=== PATIENT | female | born 1945 | race African-American/Black ===

== ENCOUNTER 2016-11-11 10:44 | Day surgery (SDC) | payer OTHER ==
[2016-11-10 14:47] VITALS: BMI 23.6
[2016-11-11] MEDS ORDERED: MIDAZOLAM HCL 2 MG/2 ML SINGLE DOSE VIAL ONE (12:17)
[2016-11-11] MEDS ORDERED: PROPOFOL 20 ML ONE (12:46)
[2016-11-11] MEDS ORDERED: ceFAZolin SODIUM 1 GM VIAL ONE (12:50)
[2016-11-11] MEDS ORDERED: ceFAZolin SODIUM 1 GM VIAL IVPB ONE (12:50)
[2016-11-11] MEDS ORDERED: HEPARIN NA (PORCINE) 5,000 UNITS/ML 1ML VIAL ONE (13:01)
[2016-11-11] MEDS ORDERED: LIDOCAINE HCL 2% (20ML MULTI-DOSE VIAL) NR ONE (13:32)
[2016-11-11] MEDS ORDERED: oxyCODONE HCL 5 MG TABLET PO PRN (13:57)
[2016-11-11] MEDS ORDERED: ONDANSETRON 4 MG/2 ML VIAL IVPUSH PRN (13:57)
--- NOTE | 2016-11-11 14:00 | OP ---
Operative Note - Note: Operative Date: 11/11/16 Pre-Operative Diagnosis: bilateral lower extremity claudication Operation: Aortogram, Left common iliac artery angioplasty with stent placement , right lower extremity angiogram, Right SFA atherectomy with DCB angioplasty Findings: 90% stenosis of left YOLI 95% stenosis of prox right SFA Post-Operative Diagnosis: Same as Pre-op Surgeon: Kenny Vásquez Anesthesia: Fractional Estimated Blood Loss (mls): 50 Operative Report Dictated: Yes
--- NOTE | 2016-11-11 14:01 | HP ---
Admitting History and Physical - Admission Chief Complaint: bilateral lower ext claudication 1 block - Smoking History Smoking history: Former smoker Have you smoked in the past 12 months: Yes Aproximately how many cigarettes per day: 10 - Alcohol/Substance Use Hx Alcohol Use: Yes (OCCASIONAL) Home Medications - Allergies Allergies/Adverse Reactions: Allergies Allergy/AdvReac Type Severity Reaction Status Date / Time No Known Drug Allergies Allergy Verified 11/11/16 11:51 - Home Medications Home Medications: Ambulatory Orders Amlodipine Besylate [Norvasc -] 5 mg PO DAILY 08/02/14 Valsartan 160 mg PO DAILY 08/02/14 Atorvastatin Ca [Lipitor] 20 mg PO HS 09/10/14 Ergocalciferol (Vitamin D2) [Vitamin D2] 2,000 unit PO DAILY 11/10/16 Nicotine Patch [Nicoderm Patch -] 1 patch TD DAILY 11/10/16 Physical Examination Vital Signs: Vital Signs Temperature 98 F 11/11/16 11:45 Pulse Rate 73 11/11/16 11:45 Respiratory Rate 18 11/11/16 11:45 Blood Pressure 157/68 11/11/16 11:45 O2 Sat by Pulse Oximetry (%) 97 11/11/16 11:45 Constitutional: Yes: Well Nourished Eyes: Yes: WNL HENT: Yes: WNL Neck: Yes: WNL Cardiovascular: Yes: WNL Respiratory: Yes: WNL Gastrointestinal: Yes: WNL Extremities: Yes: WNL Edema: No Peripheral Pulses WNL: Yes Assessment/Plan Bilateral lower ext claudication 1. For angiogram today
[2016-11-11] MEDS ORDERED: CLOPIDOGREL BISULFATE 75 MG TABLET (FP) ONE (14:34)
[2016-11-11] MEDS ORDERED: CLOPIDOGREL BISULFATE 75 MG TABLET (FP) PO ONE (15:00)
[2016-11-11 17:42] VITALS: BP 144/66; PULSE 60; TEMP 97.8
--- NOTE | 2016-12-03 14:07 | OP ---
DATE OF OPERATION: 11/11/2016 PREOPERATIVE DIAGNOSIS: Bilateral lower extremity claudication. POSTOPERATIVE DIAGNOSIS: Bilateral lower extremity claudication. PROCEDURE: Aortogram, left common iliac artery angioplasty with stent placement, right lower extremity angiogram, right superficial femoral artery atherectomy with drug-coated balloon angioplasty. FINDINGS: A 90% stenosis of left common iliac artery, 95% stenosis of proximal right superficial femoral artery. SURGEON: Kenny Obrien DO ANESTHESIA: Fractional. BLOOD LOSS: 50 mL. INDICATIONS: The patient is a 71-year-old female who has bilateral lower extremity claudication. 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 It was decided that she would need an angiogram. Patient came into ambulatory surgery. Patient was consented for the procedure, understanding all risks, benefits, and alternatives; was then taken to the operating room. DESCRIPTION OF PROCEDURE: We then prepped and draped the right and left groin in a sterile surgical manner. We then went ahead and injected 10 mL of Xylocaine 0.5% over the left common femoral artery. We used ultrasound, and we were able to visualize the left common femoral artery, and we were then able to take our micropuncture and then punctured the artery. Micropuncture wire was inserted, and a traditional 6-[place] sheath was inserted. We then placed a 0.035 floppy guidewire up into the aorta. We found significant resistance in the left common iliac artery. We then placed an Omni Flush up and shot an aortogram showing that the left common iliac artery was diseased about 90%, and the right common iliac artery was okay, but the proximal right SFA had a 95% stenosis. At this point, we went ahead and used a [employer] Valeo balloon-mounted stent, which was a 9 x 4, and we were able to balloon and stent the left common iliac artery. Once that was performed, we shot a completion angiogram showing that the left common iliac artery was now patent. We then placed an 0.035 floppy guidewire up and over, and Omni Flush catheter followed. We then were able to selectively cannulate through. Using a 0.035 stiff guidewire, we were able to selectively cannulate through the proximal 95% stenosis of the right SFA. We then placed a 6 x 45 Crossover sheath. Patient had already received 5000 units of IV heparin for the left common iliac artery intervention. We went ahead and exchanged our wire for a Viper wire. We then performed orbital atherectomy using a CSI device of the proximal right SFA. We then went ahead and shot a completion angiogram showing that the SFA was now patent, but still had some recoil. We then went ahead and used a 6 x 4 Lutonix balloon and performed angioplasty of the proximal SFA. Completion angiogram showed that the SFA was patent, and there was good brisk flow. At this point, we brought our sheath up and over, and StarClose device was successfully deployed in the left common femoral artery. Pressure was held for 5 minutes. After this there was no bleeding. The area was wet and dried and Dermabond was placed. The patient tolerated the procedure with no complications. Patient was transferred to PACU in stable condition. Patient had palpable pulses in bilateral lower extremities. Estimated blood loss: 50 mL. KENNY OBRIEN DO NP/[id number]
== END 2016-11-11 17:45 | disposition home or self-care (01) ==
LOC: JASU-SURG 10:44
PROVIDERS: ATTEND Surgery Vascular Surgery
PROC: 047K3Z1 Dilation of Right Femoral Artery using Drug-Coated Balloon, Percutaneous Approach (ICD-10-PCS; 2016-11-11)
PROC: 047D3DZ Dilation of Left Common Iliac Artery with Intraluminal Device, Percutaneous Approach (ICD-10-PCS; principal; 2016-11-11 12:30)
DX: I70.213 Atherosclerosis of native arteries of extremities with intermittent claudication, bilateral legs (principal)
CPT/HCPCS: 37221; 37225; C1877; C2623; 76000-TC; 94760; J1644

== ENCOUNTER 2023-07-23 13:55 | Inpatient (IN) | payer OTHER ==
[2023-07-23 15:03] LABS: BASO % 0.1 % (0-2.0); HEMATOCRIT 28.5 % (32.4-45.2); HEMOGLOBIN 9.2 GM/dL (10.7-15.3); LYMPH % 12.6 % (8-40); MCH 29.1 pg (25.7-33.7); MCHC 32.3 g/dl (32.0-36.0); MEAN CELL VOLUME 90.2 fl (80-96); MEAN PLT VOLUME 6.9 fl (7.5-11.1); MONO % 11.7 % (3.8-10.2); NEUT % 75.6 % (42.8-82.8); PLATELET COUNT 373 10^3/uL (134-434); RBC 3.16 M/mm3 (3.60-5.2); RDW 22.7 % (11.6-15.6); WHITE BLOOD COUNT 6.3 K/mm3 (4.0-10.0)
[2023-07-23] MEDS ORDERED: HYDROmorphone HCl 2 MG/ML VIAL ONE (15:04)
[2023-07-23] MEDS: HYDROmorphone HCl 2 MG/ML VIAL IVPUSH STA (15:09)
[2023-07-23 15:11] LABS: INR 1.59 (0.83-1.09); PROTHROMBIN TIME (PATIENT) 18.4 SEC (9.7-13.0)
[2023-07-23 15:14] LABS: ACTIVATED PTT 30.7 SECONDS (25.2-36.5)
[2023-07-23 15:20] LABS: POTASSIUM 4.8 mmol/L (3.5-5.1)
[2023-07-23 15:24] LABS: CALCIUM 8.3 mg/dL (8.5-10.1)
[2023-07-23 15:25] LABS: BLOOD UREA NITROGEN 28.4 mg/dL (7-18)
[2023-07-23 15:27] LABS: CREATININE 0.6 mg/dL (0.55-1.3)
[2023-07-23 15:29] LABS: BILIRUBIN,TOTAL 0.4 mg/dL (0.2-1)
[2023-07-23 15:32] LABS: N-TERMINAL BNP 2421.3 pg/ml (5-450)
[2023-07-23 15:50] LABS: ANISOCYTOSIS 2+; MACROCYTOSIS 1+
[2023-07-23] MEDS ORDERED: FUROSEMIDE 40 MG/4 ML INJECTABLE VIAL ONE (19:27)
[2023-07-23] MEDS: FUROSEMIDE 40 MG/4 ML INJECTABLE VIAL IVPUSH SCH (19:35)
[2023-07-23 21:26] LABS: MAGNESIUM 2.1 mg/dL (1.8-2.4)
[2023-07-24] MEDS: morphine CARPU-JECT 2 MG/1 ML DISP.SYRIN IVPUSH ONE (00:14)
[2023-07-24] MEDS ORDERED: ALBUTEROL SO4 HFA INHALER IH PRN (03:15)
[2023-07-24] MEDS: ACETAMINOPHEN 325 MG TABLET (FP) PO ONE (03:20)
[2023-07-24] MEDS: oxyCODONE HCL 5 MG TABLET PO ONE (03:48)
[2023-07-24] MEDS ORDERED: GABAPENTIN 100 MG CAPSULE ONE (06:25)
[2023-07-24] MEDS ORDERED: FUROSEMIDE 40 MG/4 ML INJECTABLE VIAL ONE ×2 (06:25→16:48)
[2023-07-24] MEDS: GABAPENTIN 100 MG CAPSULE PO SCH (06:35)
[2023-07-24] MEDS: FUROSEMIDE 40 MG/4 ML INJECTABLE VIAL IVPUSH SCH (06:35)
[2023-07-24 07:33] LABS: HEMATOCRIT 28.3 % (32.4-45.2); HEMOGLOBIN 8.9 GM/dL (10.7-15.3); MCH 28.7 pg (25.7-33.7); MCHC 31.5 g/dl (32.0-36.0); MEAN CELL VOLUME 91.1 fl (80-96); MEAN PLT VOLUME 8.1 fl (7.5-11.1); PLATELET COUNT 348 10^3/uL (134-434); RBC 3.11 M/mm3 (3.60-5.2); RDW 22.3 % (11.6-15.6); WHITE BLOOD COUNT 6.2 K/mm3 (4.0-10.0)
[2023-07-24 07:53] LABS: POTASSIUM 4.5 mmol/L (3.5-5.1)
[2023-07-24 08:01] LABS: CALCIUM 8.1 mg/dL (8.5-10.1)
[2023-07-24 08:02] LABS: ALBUMIN 2.8 g/dl (3.4-5.0); BLOOD UREA NITROGEN 23.3 mg/dL (7-18); MAGNESIUM 2.2 mg/dL (1.8-2.4)
[2023-07-24 08:04] LABS: CREATININE 0.5 mg/dL (0.55-1.3); PHOSPHOROUS 4.2 mg/dL (2.5-4.9)
[2023-07-24 08:06] LABS: BILIRUBIN,TOTAL 0.5 mg/dL (0.2-1); TOT PROT 5.4 g/dl (6.4-8.2)
[2023-07-24] MEDS: LOSARTAN POTASSIUM 50 MG TABLET PO SCH (09:47)
[2023-07-24] MEDS: amLODIPine BESYLATE 10 MG TABLET (FP) PO SCH (09:47)
[2023-07-24] MEDS: ALLOPURINOL 300 MG TABLET (FP) PO SCH (09:47)
[2023-07-24] MEDS: FOLIC ACID 1 MG TABLET (FP) PO SCH (09:48)
[2023-07-24] MEDS: CLOPIDOGREL BISULFATE 75 MG TABLET (FP) PO SCH (10:05)
[2023-07-24] MEDS: CHOLECALCIFEROL (VIT D3) 5000 UNITS (125 MCG) CAP PO SCH (11:00)
[2023-07-24] MEDS: methylPREDNISolone 4 MG TABLET PO SCH (15:34)
[2023-07-24] MEDS: RIVAROXABAN 10 MG TABLET PO SCH (15:34)
[2023-07-24] MEDS: guaiFENesin 600 MG TABLET.ER (FP) PO SCH (15:34)
[2023-07-24] MEDS: COLCHICINE 0.6 MG TAB PO SCH (16:32)
[2023-07-24] MEDS ORDERED: HEPARIN NA (PORCINE) 5,000 UNITS/ML 1ML VIAL IVPUSH PRN ×2 (19:56)
[2023-07-24] MEDS: oxyCODONE HCL 5 MG TABLET PO PRN (22:50)
[2023-07-24] MEDS: HEPARIN SOD,PORK IN 0.45% NACL 25,000 UNIT/500 ML INFUS.BAG IVPB SCH (22:51)
[2023-07-25] MEDS: ACETAMINOPHEN 325 MG TABLET (FP) PO PRN (06:45)
[2023-07-25 09:14] LABS: PH,URINE 6.5 (5.0-8.0); URINE APPEARANCE CLEAR; URINE BILIRUBIN NEGATIVE (NEGATIVE); URINE COLOR YELLOW; URINE GLUCOSE (UA) NEGATIVE (NEGATIVE); URINE KETONE NEGATIVE (NEGATIVE); URINE LEUK ESTERASE NEGATIVE (NEGATIVE); URINE NITRITE NEGATIVE (NEGATIVE); URINE PROTEIN NEGATIVE (NEGATIVE); URINE UROBILINOGEN 0.2 mg/dL (0.2-1.0)
[2023-07-25] MEDS: ACETAMINOPHEN 325 MG TABLET (FP) PO SCH (12:32)
[2023-07-25] MEDS ORDERED: ACETAMINOPHEN 325 MG TABLET (FP) ONE (12:32)
[2023-07-25] MEDS: oxyCODONE HCL 5 MG TABLET PO SCH (12:33)
[2023-07-25] MEDS: POLYETHYLENE GLYCOL (HEALTHYLAX) 3350 17 GM PACKET PO SCH (15:37)
[2023-07-25] MEDS: DORZOLAMIDE 2% HCL OPHTHALMIC SOLUTION 10 ML BOTTLE OU SCH (18:31)
[2023-07-26 07:26] LABS: BASO % 0.1 % (0-2.0); EOS % 0.5 % (0-4.5); HEMATOCRIT 27.3 % (32.4-45.2); LYMPH % 24.2 % (8-40); MCH 29.5 pg (25.7-33.7); MCHC 32.9 g/dl (32.0-36.0); MEAN CELL VOLUME 89.6 fl (80-96); MEAN PLT VOLUME 7.5 fl (7.5-11.1); NEUT % 64.2 % (42.8-82.8); PLATELET COUNT 348 10^3/uL (134-434); RBC 3.05 M/mm3 (3.60-5.2); RDW 22.6 % (11.6-15.6); WHITE BLOOD COUNT 5.1 K/mm3 (4.0-10.0)
[2023-07-26 07:27] LABS: INR 1.21 (0.83-1.09)
[2023-07-26 07:39] LABS: POTASSIUM 4.2 mmol/L (3.5-5.1)
[2023-07-26 08:03] LABS: ALBUMIN 2.4 g/dl (3.4-5.0); BLOOD UREA NITROGEN 22.1 mg/dL (7-18); CALCIUM 7.4 mg/dL (8.5-10.1)
[2023-07-26 08:06] LABS: CREATININE 0.5 mg/dL (0.55-1.3); PHOSPHOROUS 4.4 mg/dL (2.5-4.9)
[2023-07-26 08:07] LABS: MAGNESIUM 2.1 mg/dL (1.8-2.4)
[2023-07-26 08:08] LABS: BILIRUBIN,TOTAL 0.4 mg/dL (0.2-1); TOT PROT 4.9 g/dl (6.4-8.2)
[2023-07-26] MEDS: oxyCODONE HCL 5 MG TABLET PO PRN (09:13)
[2023-07-26] MEDS: oxyCODONE HCL 5 MG TABLET PO SCH (11:59)
[2023-07-26] MEDS ORDERED: LIDOCAINE HCL 1%, 10 MG/ML (20ML VIAL) ONE (16:12)
[2023-07-26] MEDS ORDERED: HEPARIN NA (PORCINE) 5,000 UNITS/ML 1ML VIAL ONE (16:12)
[2023-07-26] MEDS ORDERED: PROPOFOL 20 ML ONE (17:54)
[2023-07-26] MEDS ORDERED: MIDAZOLAM HCL 2 MG/2 ML SINGLE DOSE VIAL ONE (17:55)
[2023-07-26] MEDS: ceFAZolin SODIUM 1 GM VIAL IVPB ONE (18:05)
[2023-07-26] MEDS ORDERED: ALBUTEROL SO4 HFA INHALER IH PRN (20:48)
[2023-07-26] MEDS: GABAPENTIN 100 MG CAPSULE PO SCH (23:01)
[2023-07-27] MEDS: oxyCODONE HCL 5 MG TABLET PO SCH (00:04)
[2023-07-27] MEDS: POLYETHYLENE GLYCOL (HEALTHYLAX) 3350 17 GM PACKET PO SCH (00:04)
[2023-07-27] MEDS: ACETAMINOPHEN 325 MG TABLET (FP) PO SCH (00:05)
[2023-07-27] MEDS: FUROSEMIDE 40 MG/4 ML INJECTABLE VIAL IVPUSH SCH (05:21)
[2023-07-27 08:11] LABS: INR 1.14 (0.83-1.09); PROTHROMBIN TIME (PATIENT) 13.2 SEC (9.7-13.0)
[2023-07-27 08:13] LABS: BASO % 0.4 % (0-2.0); EOS % 0.3 % (0-4.5); HEMATOCRIT 28.7 % (32.4-45.2); HEMOGLOBIN 9.1 GM/dL (10.7-15.3); LYMPH % 15.4 % (8-40); MCH 28.9 pg (25.7-33.7); MCHC 31.8 g/dl (32.0-36.0); MEAN CELL VOLUME 90.7 fl (80-96); MEAN PLT VOLUME 8.2 fl (7.5-11.1); NEUT % 74.9 % (42.8-82.8); PLATELET COUNT 370 10^3/uL (134-434); RBC 3.17 M/mm3 (3.60-5.2); RDW 21.9 % (11.6-15.6); WHITE BLOOD COUNT 6.7 K/mm3 (4.0-10.0)
[2023-07-27 08:33] LABS: POTASSIUM 4.7 mmol/L (3.5-5.1)
[2023-07-27 08:41] LABS: ALBUMIN 2.7 g/dl (3.4-5.0)
[2023-07-27 08:42] LABS: BLOOD UREA NITROGEN 24.8 mg/dL (7-18); CALCIUM 7.8 mg/dL (8.5-10.1)
[2023-07-27 08:45] LABS: CREATININE 0.8 mg/dL (0.55-1.3)
[2023-07-27 08:46] LABS: PHOSPHOROUS 5.3 mg/dL (2.5-4.9)
[2023-07-27 08:47] LABS: BILIRUBIN,TOTAL 0.5 mg/dL (0.2-1)
[2023-07-27] MEDS: LENALIDOMIDE 2.5 MG PO SCH (09:03)
[2023-07-27 10:01] LABS: ANISOCYTOSIS 2+; MACROCYTOSIS 0
[2023-07-27] MEDS: amLODIPine BESYLATE 10 MG TABLET (FP) PO SCH (10:06)
[2023-07-27] MEDS: CLOPIDOGREL BISULFATE 75 MG TABLET (FP) PO SCH (10:06)
[2023-07-27] MEDS: LOSARTAN POTASSIUM 50 MG TABLET PO SCH (10:07)
[2023-07-27] MEDS: FOLIC ACID 1 MG TABLET (FP) PO SCH (10:07)
[2023-07-27] MEDS: methylPREDNISolone 4 MG TABLET PO SCH (10:08)
[2023-07-27] MEDS: CHOLECALCIFEROL (VIT D3) 5000 UNITS (125 MCG) CAP PO SCH (10:08)
[2023-07-27] MEDS: DORZOLAMIDE 2% HCL OPHTHALMIC SOLUTION 10 ML BOTTLE OU SCH (10:10)
[2023-07-27] MEDS: oxyCODONE HCL 5 MG TABLET PO PRN (22:13)
[2023-07-28] MEDS: oxyCODONE HCL 5 MG TABLET PO PRN (06:43)
[2023-07-28 07:47] LABS: BASO % 0.3 % (0-2.0); EOS % 0.5 % (0-4.5); HEMOGLOBIN 8.3 GM/dL (10.7-15.3); LYMPH % 19.3 % (8-40); MCH 29.2 pg (25.7-33.7); MEAN CELL VOLUME 91.3 fl (80-96); NEUT % 65.9 % (42.8-82.8); PLATELET COUNT 317 10^3/uL (134-434); RBC 2.85 M/mm3 (3.60-5.2); RDW 22.3 % (11.6-15.6); WHITE BLOOD COUNT 7.1 K/mm3 (4.0-10.0)
[2023-07-28] MEDS ORDERED: HEPARIN NA (PORCINE) 5,000 UNITS/ML 1ML VIAL IVPUSH PRN ×2 (07:54)
[2023-07-28 07:55] LABS: POTASSIUM 4.8 mmol/L (3.5-5.1)
[2023-07-28 08:26] LABS: CALCIUM 7.2 mg/dL (8.5-10.1)
[2023-07-28 08:27] LABS: ALBUMIN 2.6 g/dl (3.4-5.0); BLOOD UREA NITROGEN 40.5 mg/dL (7-18); MAGNESIUM 2.3 mg/dL (1.8-2.4)
[2023-07-28 08:30] LABS: CREATININE 1.5 mg/dL (0.55-1.3); PHOSPHOROUS 5.7 mg/dL (2.5-4.9)
[2023-07-28 08:31] LABS: BILIRUBIN,TOTAL 0.3 mg/dL (0.2-1)
[2023-07-28 08:32] LABS: TOT PROT 5.2 g/dl (6.4-8.2)
[2023-07-28] MEDS: DEXTROSE 5%-0.45% SALINE 1,000 ML IV SCH (09:22)
[2023-07-28] MEDS ORDERED: ENOXAPARIN NA (PORCINE) 40 MG/0.4 ML DISP.SYRIN SQ SCH (10:00)
[2023-07-28] MEDS: FUROSEMIDE 40 MG TABLET (FP) PO SCH (10:15)
[2023-07-28] MEDS: HEPARIN SOD,PORK IN 0.45% NACL 25,000 UNIT/500 ML INFUS.BAG IVPB SCH (10:44)
[2023-07-28] MEDS ORDERED: HEPARIN NA (PORCINE) 5,000 UNITS/ML 1ML VIAL ONE (14:37)
[2023-07-28] MEDS ORDERED: DOCUSATE SODIUM 100 MG CAPSULE (FP) PO PRN ×2 (15:40→21:13)
[2023-07-28] MEDS ORDERED: oxyCODONE HCL 5 MG TABLET PO PRN ×2 (15:40→21:13)
[2023-07-28] MEDS ORDERED: SUCCINYLCHOLINE CHLORIDE 200 MG/10 ML SYRINGE ONE (17:06)
[2023-07-28] MEDS ORDERED: PROPOFOL 20 ML ONE (17:06)
[2023-07-28] MEDS ORDERED: MIDAZOLAM HCL 2 MG/2 ML SINGLE DOSE VIAL ONE (17:06)
[2023-07-28] MEDS: ceFAZolin SODIUM 1 GM VIAL IVPB ONE (17:15)
[2023-07-28] MEDS ORDERED: VASopressin 20 UNITS/ML VIAL IV ONE (17:27)
[2023-07-28] MEDS ORDERED: ONDANSETRON 4 MG/2 ML VIAL ONE (19:37)
[2023-07-28] MEDS ORDERED: POVIDONE-IODINE OINTMENT 10% - 28.4 GM TUBE ONE (19:41)
[2023-07-28] MEDS ORDERED: ONDANSETRON 4 MG/2 ML VIAL IVPUSH PRN ×2 (20:02→21:13)
[2023-07-28] MEDS ORDERED: ALBUTEROL SO4 HFA INHALER IH PRN (21:13)
[2023-07-28] MEDS ORDERED: HYDROmorphone HCl 2 MG/ML VIAL IVPUSH PRN (22:43)
[2023-07-28] MEDS: CHLORHEXIDINE GLUCONATE 4% CLEANSER FOR DECOLONIZATION TP SCH (23:00)
[2023-07-28] MEDS: MUPIROCIN 2% TOPICAL OINTMENT FOR DECOLONIZATION NS SCH (23:30)
[2023-07-29] MEDS ORDERED: ACETAMINOPHEN 325 MG TABLET (FP) PO SCH
[2023-07-29] MEDS: ACETAMINOPHEN 1000 MG/100 ML BAG IVPB ONE (02:36)
[2023-07-29] MEDS: CEFAZOLIN SODIUM 2 GM in DEXTROSE 5%-WATER 100 ML IVPB SCH (02:37)
[2023-07-29] MEDS: GABAPENTIN 100 MG CAPSULE PO SCH (02:37)
[2023-07-29] MEDS: LACTATED RINGERS SOLUTION 1,000 ML IV SCH ×2 (02:38→07:41)
[2023-07-29] MEDS: POLYETHYLENE GLYCOL (HEALTHYLAX) 3350 17 GM PACKET PO SCH (02:39)
[2023-07-29] MEDS: ACETAMINOPHEN 325 MG TABLET (FP) PO SCH (06:36)
[2023-07-29] MEDS: oxyCODONE HCL 5 MG TABLET PO PRN ×2 (06:37→19:58)
[2023-07-29 06:56] LABS: BASO % 0.1 % (0-2.0); HEMATOCRIT 22.1 % (32.4-45.2); HEMOGLOBIN 7.5 GM/dL (10.7-15.3); LYMPH % 10.5 % (8-40); MCH 30.3 pg (25.7-33.7); MCHC 33.8 g/dl (32.0-36.0); MEAN CELL VOLUME 89.6 fl (80-96); MEAN PLT VOLUME 8.2 fl (7.5-11.1); MONO % 10.3 % (3.8-10.2); NEUT % 79.1 % (42.8-82.8); PLATELET COUNT 274 10^3/uL (134-434); RBC 2.46 M/mm3 (3.60-5.2); RDW 21.3 % (11.6-15.6); WHITE BLOOD COUNT 6.3 K/mm3 (4.0-10.0)
[2023-07-29 07:04] LABS: INR 1.14 (0.83-1.09); PROTHROMBIN TIME (PATIENT) 13.2 SEC (9.7-13.0)
[2023-07-29 07:11] LABS: POTASSIUM 5.5 mmol/L (3.5-5.1)
[2023-07-29 07:14] LABS: ALBUMIN 2.4 g/dl (3.4-5.0); BLOOD UREA NITROGEN 34.8 mg/dL (7-18); CALCIUM 7.4 mg/dL (8.5-10.1); MAGNESIUM 2.2 mg/dL (1.8-2.4)
[2023-07-29 07:18] LABS: CREATININE 0.8 mg/dL (0.55-1.3); PHOSPHOROUS 5.2 mg/dL (2.5-4.9)
[2023-07-29 07:19] LABS: BILIRUBIN,TOTAL 0.4 mg/dL (0.2-1); TOT PROT 4.8 g/dl (6.4-8.2)
[2023-07-29] MEDS: LENALIDOMIDE 2.5 MG PO SCH (07:40)
[2023-07-29] MEDS: HEPARIN NA (PORCINE) 5,000 UNITS/ML 1ML VIAL IVPUSH ONE (07:40)
[2023-07-29] MEDS: MUPIROCIN 2% TOPICAL OINTMENT FOR DECOLONIZATION NS SCH (07:41)
[2023-07-29] MEDS: SODIUM ZIRCONIUM CYCLOSILICATE (LOKELMA) 5 GM PACKET PO ONE (08:13)
[2023-07-29] MEDS: FAMOTIDINE 20 MG TABLET PO SCH (09:21)
[2023-07-29] MEDS: ASPIRIN 81 MG CHEWABLE TABLETS PO SCH (09:21)
[2023-07-29] MEDS: CLOPIDOGREL BISULFATE 75 MG TABLET (FP) PO SCH (09:21)
[2023-07-29] MEDS: FOLIC ACID 1 MG TABLET (FP) PO SCH (09:21)
[2023-07-29] MEDS: HEPARIN NA (PORCINE) 5,000 UNITS/ML 1ML VIAL SQ ONE (09:21)
[2023-07-29] MEDS: amLODIPine BESYLATE 10 MG TABLET (FP) PO SCH (09:21)
[2023-07-29] MEDS: CHOLECALCIFEROL (VIT D3) 5000 UNITS (125 MCG) CAP PO SCH (09:22)
[2023-07-29] MEDS: methylPREDNISolone 4 MG TABLET PO SCH (09:22)
[2023-07-29] MEDS ORDERED: LENALIDOMIDE 2.5 MG PO SCH (10:00)
[2023-07-29] MEDS: DORZOLAMIDE 2% HCL OPHTHALMIC SOLUTION 10 ML BOTTLE OU SCH (10:01)
[2023-07-29] MEDS: FUROSEMIDE 40 MG TABLET (FP) PO SCH (11:05)
[2023-07-29] MEDS ORDERED: CHLORHEXIDINE GLUCONATE 4% CLEANSER FOR DECOLONIZATION TP SCH (22:00)
[2023-07-30 07:23] LABS: HEMATOCRIT 24.2 % (32.4-45.2); HEMOGLOBIN 7.8 GM/dL (10.7-15.3); MEAN CELL VOLUME 90.7 fl (80-96); MEAN PLT VOLUME 7.4 fl (7.5-11.1); PLATELET COUNT 254 10^3/uL (134-434); RBC 2.67 M/mm3 (3.60-5.2)
[2023-07-30 07:49] LABS: POTASSIUM 5.1 mmol/L (3.5-5.1)
[2023-07-30 07:52] LABS: CALCIUM 8.1 mg/dL (8.5-10.1)
[2023-07-30 07:53] LABS: ALBUMIN 2.4 g/dl (3.4-5.0); MAGNESIUM 2.7 mg/dL (1.8-2.4)
[2023-07-30 07:56] LABS: CREATININE 0.6 mg/dL (0.55-1.3); PHOSPHOROUS 3.8 mg/dL (2.5-4.9)
[2023-07-30 07:57] LABS: BILIRUBIN,TOTAL 0.4 mg/dL (0.2-1); TOT PROT 5.2 g/dl (6.4-8.2)
[2023-07-30] MEDS: oxyCODONE HCL 5 MG TABLET PO PRN (10:50)
[2023-07-30] MEDS ORDERED: ALBUTEROL SO4 0.083% IH SOL 2.5 MG/3 ML VIAL.NEB. NEB PRN (10:53)
[2023-07-30] MEDS: FLUTICASONE/UMECLIDIN/VILANTER(200-62.5-25 TRELEGY ELLIPTA) INAHLER IH SCH (11:17)
[2023-07-30 14:24] VITALS: BMI 19.3
[2023-07-31] MEDS ORDERED: HYDROmorphone HCl 2 MG/ML VIAL IVPUSH PRN (02:06)
[2023-07-31] MEDS ORDERED: ALBUTEROL SO4 HFA INHALER IH PRN (02:06)
[2023-07-31] MEDS: GABAPENTIN 100 MG CAPSULE PO SCH (06:13)
[2023-07-31] MEDS: ACETAMINOPHEN 325 MG TABLET (FP) PO SCH (06:14)
[2023-07-31 08:05] LABS: HEMATOCRIT 22.4 % (32.4-45.2); HEMOGLOBIN 7.2 GM/dL (10.7-15.3); MCH 28.9 pg (25.7-33.7); MCHC 32.2 g/dl (32.0-36.0); MEAN CELL VOLUME 89.8 fl (80-96); MEAN PLT VOLUME 8.3 fl (7.5-11.1); PLATELET COUNT 290 10^3/uL (134-434); RBC 2.49 M/mm3 (3.60-5.2); RDW 21.5 % (11.6-15.6); WHITE BLOOD COUNT 5.5 K/mm3 (4.0-10.0)
[2023-07-31 08:09] LABS: BASO % 0.2 % (0-2.0); EOS % 0.5 % (0-4.5); HEMATOCRIT 22.1 % (32.4-45.2); HEMOGLOBIN 7.3 GM/dL (10.7-15.3); LYMPH % 21.1 % (8-40); MCH 29.6 pg (25.7-33.7); MCHC 32.9 g/dl (32.0-36.0); MEAN CELL VOLUME 89.9 fl (80-96); MEAN PLT VOLUME 8.4 fl (7.5-11.1); MONO % 15.3 % (3.8-10.2); NEUT % 62.9 % (42.8-82.8); PLATELET COUNT 271 10^3/uL (134-434); RBC 2.46 M/mm3 (3.60-5.2); RDW 22.1 % (11.6-15.6); WHITE BLOOD COUNT 5.4 K/mm3 (4.0-10.0)
[2023-07-31 08:24] LABS: POTASSIUM 4.6 mmol/L (3.5-5.1)
[2023-07-31 08:30] LABS: CALCIUM 8.4 mg/dL (8.5-10.1)
[2023-07-31 08:32] LABS: ALBUMIN 2.3 g/dl (3.4-5.0); MAGNESIUM 2.3 mg/dL (1.8-2.4)
[2023-07-31 08:34] LABS: BILIRUBIN,TOTAL 0.4 mg/dL (0.2-1); CREATININE 0.5 mg/dL (0.55-1.3); PHOSPHOROUS 3.6 mg/dL (2.5-4.9)
[2023-07-31 08:56] LABS: ANISOCYTOSIS 3+; MACROCYTOSIS 0
[2023-07-31] MEDS ORDERED: LENALIDOMIDE 2.5 MG PO SCH (10:00)
[2023-07-31] MEDS ORDERED: DORZOLAMIDE 2% HCL OPHTHALMIC SOLUTION 10 ML BOTTLE OU SCH (10:00)
[2023-07-31] MEDS: methylPREDNISolone 4 MG TABLET PO SCH (10:11)
[2023-07-31] MEDS: CLOPIDOGREL BISULFATE 75 MG TABLET (FP) PO SCH (10:11)
[2023-07-31] MEDS: ASPIRIN 81 MG CHEWABLE TABLETS PO SCH (10:11)
[2023-07-31] MEDS: FAMOTIDINE 20 MG TABLET PO SCH (10:11)
[2023-07-31] MEDS: FUROSEMIDE 40 MG TABLET (FP) PO SCH (10:11)
[2023-07-31] MEDS: POLYETHYLENE GLYCOL (HEALTHYLAX) 3350 17 GM PACKET PO SCH (10:11)
[2023-07-31] MEDS: amLODIPine BESYLATE 10 MG TABLET (FP) PO SCH (10:11)
[2023-07-31] MEDS: FOLIC ACID 1 MG TABLET (FP) PO SCH (10:11)
[2023-07-31] MEDS: CHOLECALCIFEROL (VIT D3) 5000 UNITS (125 MCG) CAP PO SCH (10:12)
[2023-07-31] MEDS: DOCUSATE SODIUM 100 MG CAPSULE (FP) PO PRN (10:15)
[2023-07-31] MEDS: SODIUM PHOSPHATE/NA BIPHOS 133 ML ENEMA RC ONE (13:58)
[2023-08-01 07:33] LABS: POTASSIUM 4.2 mmol/L (3.5-5.1)
[2023-08-01 07:47] LABS: BLOOD UREA NITROGEN 18.9 mg/dL (7-18)
[2023-08-01 07:48] LABS: ALBUMIN 2.3 g/dl (3.4-5.0)
[2023-08-01 07:50] LABS: PHOSPHOROUS 2.9 mg/dL (2.5-4.9)
[2023-08-01 07:51] LABS: CREATININE 0.6 mg/dL (0.55-1.3)
[2023-08-01 07:52] LABS: BILIRUBIN,TOTAL 0.3 mg/dL (0.2-1)
[2023-08-01 08:30] LABS: BASO % 0.3 % (0-2.0); EOS % 0.5 % (0-4.5); HEMATOCRIT 22.7 % (32.4-45.2); HEMOGLOBIN 7.3 GM/dL (10.7-15.3); LYMPH % 17.2 % (8-40); MCH 29.1 pg (25.7-33.7); MCHC 32.3 g/dl (32.0-36.0); MEAN CELL VOLUME 90.3 fl (80-96); MEAN PLT VOLUME 7.8 fl (7.5-11.1); MONO % 15.5 % (3.8-10.2); NEUT % 66.5 % (42.8-82.8); PLATELET COUNT 271 10^3/uL (134-434); RBC 2.51 M/mm3 (3.60-5.2); RDW 21.5 % (11.6-15.6); WHITE BLOOD COUNT 6.2 K/mm3 (4.0-10.0)
[2023-08-01] MEDS: RIVAROXABAN 10 MG TABLET PO SCH (17:57)
[2023-08-02 08:18] LABS: POTASSIUM 4.5 mmol/L (3.5-5.1)
[2023-08-02 08:33] LABS: BASO % 0.1 % (0-2.0); EOS % 0.7 % (0-4.5); HEMATOCRIT 19.5 % (32.4-45.2); MCH 29.6 pg (25.7-33.7); MCHC 32.3 g/dl (32.0-36.0); MEAN CELL VOLUME 91.6 fl (80-96); MONO % 12.8 % (3.8-10.2); NEUT % 68.4 % (42.8-82.8); PLATELET COUNT 268 10^3/uL (134-434); RBC 2.13 M/mm3 (3.60-5.2); RDW 21.5 % (11.6-15.6); WHITE BLOOD COUNT 6.1 K/mm3 (4.0-10.0)
[2023-08-02 08:34] LABS: ALBUMIN 2.1 g/dl (3.4-5.0)
[2023-08-02 08:35] LABS: BILIRUBIN,TOTAL 0.3 mg/dL (0.2-1); TOT PROT 4.8 g/dl (6.4-8.2)
[2023-08-02 08:36] LABS: BLOOD UREA NITROGEN 27.3 mg/dL (7-18); CREATININE 0.4 mg/dL (0.55-1.3)
[2023-08-02 09:05] LABS: HEMOGLOBIN 6.3 GM/dL (10.7-15.3)
[2023-08-03 00:26] LABS: BASO % 0.3 % (0-2.0); EOS % 0.5 % (0-4.5); HEMATOCRIT 25.6 % (32.4-45.2); HEMOGLOBIN 8.6 GM/dL (10.7-15.3); LYMPH % 17.9 % (8-40); MCH 28.6 pg (25.7-33.7); MCHC 33.5 g/dl (32.0-36.0); MEAN PLT VOLUME 7.6 fl (7.5-11.1); NEUT % 68.3 % (42.8-82.8); PLATELET COUNT 271 10^3/uL (134-434); RDW 24.4 % (11.6-15.6); WHITE BLOOD COUNT 8.4 K/mm3 (4.0-10.0)
[2023-08-03 00:43] LABS: MEAN CELL VOLUME 85.3 fl (80-96)
[2023-08-03 07:08] LABS: HEMATOCRIT 26.8 % (32.4-45.2); HEMOGLOBIN 8.9 GM/dL (10.7-15.3); MCH 28.9 pg (25.7-33.7); MCHC 33.4 g/dl (32.0-36.0); MEAN CELL VOLUME 86.5 fl (80-96); MEAN PLT VOLUME 7.8 fl (7.5-11.1); PLATELET COUNT 281 10^3/uL (134-434); RDW 24.3 % (11.6-15.6); WHITE BLOOD COUNT 7.7 K/mm3 (4.0-10.0)
[2023-08-03 10:06] VITALS: BP 153/59; PULSE 91; RESP 22; TEMP 97.9
== END 2023-08-03 12:17 | disposition home or self-care (01) | DRG 252 ==
LOC: JER 13:55 → JERBED 20:03 → OBSVTOIN 07-24 03:19 → J4W 07-24 20:07 → JICU 07-28 21:45 → J4W 07-30 22:11
PROVIDERS: ADMIT Internal Medicine; ATTEND Internal Medicine
PROC: 047C3DZ Dilation of Right Common Iliac Artery with Intraluminal Device, Percutaneous Approach (ICD-10-PCS; 2023-07-26)
PROC: 047D3DZ Dilation of Left Common Iliac Artery with Intraluminal Device, Percutaneous Approach (ICD-10-PCS; 2023-07-26)
PROC: 04HK3DZ Insertion of Intraluminal Device into Right Femoral Artery, Percutaneous Approach (ICD-10-PCS; 2023-07-26)
PROC: B41DYZZ Fluoroscopy of Aorta and Bilateral Lower Extremity Arteries using Other Contrast (ICD-10-PCS; 2023-07-26)
PROC: 06Q Lower Veins, Repair (ICD-10-PCS; 2023-07-28)
PROC: 04C Lower Arteries, Extirpation (ICD-10-PCS; principal; 2023-07-28 16:00)
PROC: 30233N1 Transfusion of Nonautologous Red Blood Cells into Peripheral Vein, Percutaneous Approach (ICD-10-PCS; 2023-08-02)
DX: I73.9 Peripheral vascular disease, unspecified (principal); I50.33 Acute on chronic diastolic (congestive) heart failure; C90.00 Multiple myeloma not having achieved remission; N13.4 Hydroureter; N13.30 Unspecified hydronephrosis; I74.3 Embolism and thrombosis of arteries of the lower extremities; N17.9 Acute kidney failure, unspecified; D68.59 Other primary thrombophilia; I50.30 Unspecified diastolic (congestive) heart failure; I11.0 Hypertensive heart disease with heart failure; I70.92 Chronic total occlusion of artery of the extremities; J44.9 Chronic obstructive pulmonary disease, unspecified; D63.8 Anemia in other chronic diseases classified elsewhere; E78.5 Hyperlipidemia, unspecified; I70.0 Atherosclerosis of aorta; E87.5 Hyperkalemia; Z99.81 Dependence on supplemental oxygen; I49.3 Ventricular premature depolarization; K59.00 Constipation, unspecified
CPT/HCPCS: 36415; 36430; 71046-TC-FY; 75635-TC; 76000-TC-FY; 80053; 81003; 82272; 82728; 82962; 83036; 83540; 83550; 83735; 83880; 84100; 84484; 85025; 85027; 85045; 85610; 85730; 86850; 86870; 86880; 86900; 86901; 86902; 86922; 88304-TC; 88311-TC; 93005; 93010; 93306-TC; 93970-TC; 94010; 94760; 97116-GP; 97162-GP; 99285-25; C1874; G0378; J0131; J1644; P9058; Q9967

== ENCOUNTER 2023-08-26 10:57 | Inpatient (IN) | payer OTHER ==
[2023-08-26 12:55] LABS: BASO % 0.2 % (0-2.0); EOS % 0.2 % (0-4.5); HEMOGLOBIN 8.1 GM/dL (10.7-15.3); LYMPH % 20.4 % (8-40); MCH 28.9 pg (25.7-33.7); MCHC 32.4 g/dl (32.0-36.0); MEAN CELL VOLUME 89.2 fl (80-96); MEAN PLT VOLUME 7.5 fl (7.5-11.1); MONO % 8.4 % (3.8-10.2); NEUT % 70.8 % (42.8-82.8); PLATELET COUNT 221 10^3/uL (134-434); RBC 2.81 M/mm3 (3.60-5.2); RDW 20.2 % (11.6-15.6)
[2023-08-26 12:58] LABS: VENOUS BASE EXCESS -6.3 mmol/L (-2-2); VENOUS O2 SATURATION 48.2 % (70-80); VENOUS PCO2 38.8 mmHg (38-52); VENOUS PH 7.315 (7.310-7.410)
[2023-08-26 13:01] LABS: INR 1.18 (0.83-1.09); PROTHROMBIN TIME (PATIENT) 13.7 SEC (9.7-13.0)
[2023-08-26] MEDS ORDERED: PANTOPRAZOLE SODIUM 40 MG VIAL ONE (15:36)
[2023-08-26] MEDS: PANTOPRAZOLE SODIUM 40 MG VIAL IVPUSH ONE ×2 (15:47→15:51)
[2023-08-26] MEDS: ALBUTEROL SO4 2.5/IPRATROPIUM 0.5 INH SOL 3 ML VIAL.NEB. NEB ONE (16:32)
[2023-08-26] MEDS ORDERED: ALBUTEROL SO4 2.5/IPRATROPIUM 0.5 INH SOL 3 ML VIAL.NEB. NEB ONE (16:33)
[2023-08-26 18:43] LABS: CALCIUM 8.4 mg/dL (8.5-10.1)
[2023-08-26 18:44] LABS: ALBUMIN 3.1 g/dl (3.4-5.0); BLOOD UREA NITROGEN 15.3 mg/dL (7-18)
[2023-08-26 18:47] LABS: CREATININE 0.6 mg/dL (0.55-1.3)
[2023-08-26 18:49] LABS: BILIRUBIN,TOTAL 0.7 mg/dL (0.2-1); TOT PROT 5.8 g/dl (6.4-8.2)
[2023-08-27] MEDS: CEFTRIAXONE 1 GM in DEXTROSE 5%-WATER - 50 ML IVPB SCH (09:30)
[2023-08-27] MEDS: PANTOPRAZOLE SODIUM 40 MG VIAL IVPUSH SCH (09:31)
[2023-08-27] MEDS: AZITHROMYCIN IVPB 500 MG/250 ML BAG IVPB SCH (09:31)
[2023-08-27] MEDS: LOSARTAN POTASSIUM 50 MG TABLET PO SCH (09:31)
[2023-08-27] MEDS ORDERED: PANTOPRAZOLE 40 MG TABLET PO SCH (10:00)
[2023-08-27] MEDS: POLYETHYLENE GLYCOL (HEALTHYLAX) 3350 17 GM PACKET PO SCH (10:23)
[2023-08-27] MEDS: FUROSEMIDE 40 MG/4 ML INJECTABLE VIAL IVPUSH ONE (10:23)
[2023-08-27 11:01] LABS: HEMATOCRIT 22.3 % (32.4-45.2); HEMOGLOBIN 7.2 GM/dL (10.7-15.3); MCH 29.2 pg (25.7-33.7); MCHC 32.1 g/dl (32.0-36.0); MEAN PLT VOLUME 7.5 fl (7.5-11.1); PLATELET COUNT 195 10^3/uL (134-434); RBC 2.46 M/mm3 (3.60-5.2); RDW 19.3 % (11.6-15.6); RETICULOCYTES 3.52 % (0.5-1.5); WHITE BLOOD COUNT 4.6 K/mm3 (4.0-10.0)
[2023-08-27 11:26] LABS: POTASSIUM 4.3 mmol/L (3.5-5.1)
[2023-08-27 11:28] LABS: CALCIUM 8.1 mg/dL (8.5-10.1)
[2023-08-27 11:29] LABS: ALBUMIN 2.5 g/dl (3.4-5.0); BLOOD UREA NITROGEN 8.6 mg/dL (7-18); MAGNESIUM 2.2 mg/dL (1.8-2.4)
[2023-08-27 11:32] LABS: CREATININE 0.6 mg/dL (0.55-1.3); PHOSPHOROUS 3.3 mg/dL (2.5-4.9)
[2023-08-27 11:33] LABS: TOT PROT 4.9 g/dl (6.4-8.2)
[2023-08-27 11:34] LABS: BILIRUBIN,TOTAL 0.5 mg/dL (0.2-1)
[2023-08-27 11:37] LABS: N-TERMINAL BNP 2427.7 pg/ml (5-450)
[2023-08-27] MEDS: valACYclovir HCL 500 MG TABLET (FP) PO SCH (14:26)
[2023-08-27] MEDS: ACETAMINOPHEN 325 MG TABLET (FP) PO PRN (16:33)
[2023-08-27 18:03] LABS: URINE APPEARANCE CLEAR; URINE BILIRUBIN NEGATIVE (NEGATIVE); URINE COLOR YELLOW; URINE GLUCOSE (UA) NEGATIVE (NEGATIVE); URINE KETONE NEGATIVE (NEGATIVE); URINE LEUK ESTERASE NEGATIVE (NEGATIVE); URINE NITRITE NEGATIVE (NEGATIVE); URINE PROTEIN NEGATIVE (NEGATIVE); URINE UROBILINOGEN 0.2 mg/dL (0.2-1.0)
[2023-08-27 21:00] LABS: HEMATOCRIT 23.6 % (32.4-45.2); HEMOGLOBIN 7.8 GM/dL (10.7-15.3); MCH 30.1 pg (25.7-33.7); MCHC 33.2 g/dl (32.0-36.0); MEAN CELL VOLUME 90.5 fl (80-96); MEAN PLT VOLUME 8.3 fl (7.5-11.1); PLATELET COUNT 191 10^3/uL (134-434); RBC 2.61 M/mm3 (3.60-5.2); RDW 17.8 % (11.6-15.6); WHITE BLOOD COUNT 4.8 K/mm3 (4.0-10.0)
[2023-08-28] MEDS: FUROSEMIDE 40 MG/4 ML INJECTABLE VIAL IVPUSH ONE (04:46)
[2023-08-28 09:14] LABS: BASO % 0.2 % (0-2.0); EOS % 0.4 % (0-4.5); HEMATOCRIT 32.9 % (32.4-45.2); HEMOGLOBIN 10.7 GM/dL (10.7-15.3); LYMPH % 12.1 % (8-40); MCH 29.5 pg (25.7-33.7); MCHC 32.5 g/dl (32.0-36.0); MEAN CELL VOLUME 90.7 fl (80-96); MEAN PLT VOLUME 7.9 fl (7.5-11.1); MONO % 6.9 % (3.8-10.2); NEUT % 80.4 % (42.8-82.8); PLATELET COUNT 218 10^3/uL (134-434); RBC 3.63 M/mm3 (3.60-5.2); RDW 17.1 % (11.6-15.6)
[2023-08-28 10:04] LABS: POTASSIUM 3.9 mmol/L (3.5-5.1)
[2023-08-28 10:12] LABS: ALBUMIN 2.7 g/dl (3.4-5.0); BLOOD UREA NITROGEN 10.5 mg/dL (7-18); CALCIUM 7.9 mg/dL (8.5-10.1)
[2023-08-28 10:14] LABS: CREATININE 0.6 mg/dL (0.55-1.3)
[2023-08-28 10:15] LABS: BILIRUBIN,TOTAL 0.8 mg/dL (0.2-1); TOT PROT 5.2 g/dl (6.4-8.2)
[2023-08-29 09:23] LABS: BASO % 0.3 % (0-2.0); EOS % 0.4 % (0-4.5); HEMATOCRIT 30.1 % (32.4-45.2); HEMOGLOBIN 9.9 GM/dL (10.7-15.3); LYMPH % 14.7 % (8-40); MCH 29.9 pg (25.7-33.7); MCHC 32.9 g/dl (32.0-36.0); MEAN PLT VOLUME 8.3 fl (7.5-11.1); MONO % 11.2 % (3.8-10.2); NEUT % 73.4 % (42.8-82.8); PLATELET COUNT 201 10^3/uL (134-434); RBC 3.31 M/mm3 (3.60-5.2); RDW 17.6 % (11.6-15.6); WHITE BLOOD COUNT 5.3 K/mm3 (4.0-10.0)
[2023-08-29 10:00] LABS: POTASSIUM 4.4 mmol/L (3.5-5.1)
[2023-08-29 10:49] LABS: CREATININE 0.6 mg/dL (0.55-1.3)
[2023-08-29 10:51] LABS: BILIRUBIN,TOTAL 0.5 mg/dL (0.2-1); TOT PROT 4.9 g/dl (6.4-8.2)
[2023-08-29 10:59] LABS: ALBUMIN 2.5 g/dl (3.4-5.0); BLOOD UREA NITROGEN 11.7 mg/dL (7-18); CALCIUM 7.8 mg/dL (8.5-10.1)
[2023-08-29] MEDS ORDERED: ALBUTEROL SO4 0.083% IH SOL 2.5 MG/3 ML VIAL.NEB. NEB PRN (14:19)
[2023-08-29] MEDS: FLUTICASONE/UMECLIDIN/VILANTER(100-62.5-25 TRELEGY ELLIPTA) INAHLER IH SCH (18:18)
[2023-08-29 19:51] VITALS: BMI 22.4
[2023-08-30 08:39] LABS: BASO % 0.2 % (0-2.0); EOS % 0.9 % (0-4.5); HEMOGLOBIN 9.8 GM/dL (10.7-15.3); LYMPH % 19.3 % (8-40); MCHC 32.7 g/dl (32.0-36.0); MEAN CELL VOLUME 91.8 fl (80-96); MEAN PLT VOLUME 8.5 fl (7.5-11.1); MONO % 12.9 % (3.8-10.2); NEUT % 66.7 % (42.8-82.8); PLATELET COUNT 203 10^3/uL (134-434); RBC 3.27 M/mm3 (3.60-5.2); WHITE BLOOD COUNT 4.9 K/mm3 (4.0-10.0)
[2023-08-30 08:43] LABS: POTASSIUM 4.3 mmol/L (3.5-5.1)
[2023-08-30 09:02] LABS: CALCIUM 7.8 mg/dL (8.5-10.1)
[2023-08-30 09:03] LABS: ALBUMIN 2.4 g/dl (3.4-5.0); BLOOD UREA NITROGEN 16.6 mg/dL (7-18)
[2023-08-30 09:06] LABS: CREATININE 0.6 mg/dL (0.55-1.3)
[2023-08-30 09:07] LABS: BILIRUBIN,TOTAL 0.4 mg/dL (0.2-1)
[2023-08-30] MEDS: PEG 3350/NA SULF BICARB CL/KCL 4000 ML SOLN.RECON PO ONE (17:07)
[2023-08-30] MEDS: BISACODYL 5 MG TABLET.DR (FP) PO ONE (17:08)
[2023-08-31 09:22] LABS: BASO % 0.2 % (0-2.0); EOS % 0.4 % (0-4.5); HEMOGLOBIN 10.6 GM/dL (10.7-15.3); LYMPH % 22.1 % (8-40); MCH 30.2 pg (25.7-33.7); MCHC 33.2 g/dl (32.0-36.0); MEAN CELL VOLUME 90.9 fl (80-96); MEAN PLT VOLUME 8.2 fl (7.5-11.1); MONO % 9.7 % (3.8-10.2); NEUT % 67.6 % (42.8-82.8); PLATELET COUNT 230 10^3/uL (134-434); RBC 3.52 M/mm3 (3.60-5.2); RDW 17.8 % (11.6-15.6); WHITE BLOOD COUNT 4.7 K/mm3 (4.0-10.0)
[2023-08-31 09:28] LABS: INR 1.12 (0.83-1.09)
[2023-08-31 10:00] LABS: POTASSIUM 4.2 mmol/L (3.5-5.1)
[2023-08-31 10:08] LABS: CALCIUM 8.1 mg/dL (8.5-10.1)
[2023-08-31 10:12] LABS: CREATININE 0.7 mg/dL (0.55-1.3)
[2023-08-31] MEDS: amLODIPine BESYLATE 10 MG TABLET (FP) PO SCH (12:00)
[2023-08-31 13:10] VITALS: RESP 18
[2023-08-31 15:11] VITALS: BP 155/67; PULSE 70; TEMP 97.7
== END 2023-08-31 15:14 | disposition home or self-care (01) | DRG 840 ==
LOC: JER 10:57 → JERBED 15:33 → J5S 17:30
PROVIDERS: ADMIT Internal Medicine; ATTEND Internal Medicine
PROC: 0DB98ZX Excision of Duodenum, Via Natural or Artificial Opening Endoscopic, Diagnostic (ICD-10-PCS; principal; 2023-08-27)
PROC: 0DB68ZX Excision of Stomach, Via Natural or Artificial Opening Endoscopic, Diagnostic (ICD-10-PCS; 2023-08-27)
PROC: 0DBK8ZZ Excision of Ascending Colon, Via Natural or Artificial Opening Endoscopic (ICD-10-PCS; 2023-08-27)
PROC: 0DBL8ZZ Excision of Transverse Colon, Via Natural or Artificial Opening Endoscopic (ICD-10-PCS; 2023-08-27)
PROC: 30233N1 Transfusion of Nonautologous Red Blood Cells into Peripheral Vein, Percutaneous Approach (ICD-10-PCS; 2023-08-27)
DX: C90.00 Multiple myeloma not having achieved remission (principal); J18.9 Pneumonia, unspecified organism; J96.11 Chronic respiratory failure with hypoxia; I50.32 Chronic diastolic (congestive) heart failure; J90 Pleural effusion, not elsewhere classified; J44.0 Chronic obstructive pulmonary disease with (acute) lower respiratory infection; J44.1 Chronic obstructive pulmonary disease with (acute) exacerbation; D63.0 Anemia in neoplastic disease; I73.9 Peripheral vascular disease, unspecified; Q27.33 Arteriovenous malformation of digestive system vessel; I27.20 Pulmonary hypertension, unspecified; I11.0 Hypertensive heart disease with heart failure; E78.00 Pure hypercholesterolemia, unspecified; K64.4 Residual hemorrhoidal skin tags; D12.2 Benign neoplasm of ascending colon; K57.30 Diverticulosis of large intestine without perforation or abscess without bleeding; Z99.81 Dependence on supplemental oxygen
CPT/HCPCS: 0241U-QW; 36415; 36430; 71045-TC-FY; 71275-TC; 80048; 80053; 81003; 82272; 82550; 82803; 83010; 83036; 83605; 83615; 83735; 83880; 84100; 84484; 85025; 85027; 85045; 85610; 85730; 86850; 86870; 86880; 86900; 86901; 86902; 86922; 87040; 87086; 87899; 88305-TC; 93005; 93010; 93306-TC; 93971-TC; 97116-GP; 99285-25; P9058; Q9967

== ENCOUNTER 2023-09-10 08:08 | Inpatient (IN) | payer OTHER ==
[2023-09-10] MEDS ORDERED: methylPREDNISolone NA SUCC 125 MG/2 ML VIAL ONE (08:45)
[2023-09-10] MEDS: methylPREDNISolone NA SUCC 125 MG/2 ML VIAL IVPB ONE (09:25)
[2023-09-10] MEDS: ALBUTEROL SO4 2.5/IPRATROPIUM 0.5 INH SOL 3 ML VIAL.NEB. NEB SCH (09:25)
[2023-09-10 09:26] LABS: BASO % 0.1 % (0-2.0); HEMATOCRIT 32.2 % (32.4-45.2); HEMOGLOBIN 10.3 GM/dL (10.7-15.3); LYMPH % 7.4 % (8-40); MCH 30.1 pg (25.7-33.7); MEAN CELL VOLUME 93.9 fl (80-96); MEAN PLT VOLUME 7.5 fl (7.5-11.1); MONO % 6.1 % (3.8-10.2); NEUT % 86.4 % (42.8-82.8); PLATELET COUNT 388 10^3/uL (134-434); RBC 3.43 M/mm3 (3.60-5.2); RDW 20.7 % (11.6-15.6); WHITE BLOOD COUNT 8.8 K/mm3 (4.0-10.0)
[2023-09-10 09:28] LABS: VENOUS BASE EXCESS -4.6 mmol/L (-2-2); VENOUS PCO2 48.2 mmHg (38-52); VENOUS PH 7.281 (7.310-7.410)
[2023-09-10 09:38] LABS: INR 1.02 (0.83-1.09); PROTHROMBIN TIME (PATIENT) 11.5 SEC (9.7-13.0)
[2023-09-10 09:45] LABS: POTASSIUM 4.2 mmol/L (3.5-5.1)
[2023-09-10 09:47] LABS: ANISOCYTOSIS 2+; CALCIUM 8.6 mg/dL (8.5-10.1); MACROCYTOSIS 0
[2023-09-10 09:49] LABS: BLOOD UREA NITROGEN 17.7 mg/dL (7-18)
[2023-09-10 09:51] LABS: CREATININE 0.6 mg/dL (0.55-1.3)
[2023-09-10 09:52] LABS: BILIRUBIN,TOTAL 0.5 mg/dL (0.2-1)
[2023-09-10 09:56] LABS: ALBUMIN 3.1 g/dl (3.4-5.0)
[2023-09-10] MEDS ORDERED: ACETAMINOPHEN INJECTION 100 ML IVPB ONE (12:05)
[2023-09-10] MEDS: ACETAMINOPHEN 1000 MG/100 ML BAG IVPB ONE (12:15)
[2023-09-10] MEDS ORDERED: AZITHROMYCIN IVPB 500 MG/250 ML BAG IVPB ONE (12:22)
[2023-09-10] MEDS ORDERED: VANCOMYCIN 1 GRAM (PRE-DOCKED) 1,000 MG/250 ML BAG IVPB ONE (12:22)
[2023-09-10] MEDS ORDERED: PIPERACILLIN/TAZOB 4.5 GM 4.5 GM/100 ML BAG IVPB ONE (12:22)
[2023-09-10] MEDS: PIPERACILLIN/TAZOB 4.5 GM 4.5 GM in DEXTROSE 5%-WATER 100 ML IVPB ONE (12:38)
[2023-09-10] MEDS ORDERED: FUROSEMIDE 40 MG/4 ML INJECTABLE VIAL ONE (13:19)
[2023-09-10] MEDS: FUROSEMIDE 40 MG/4 ML INJECTABLE VIAL IVPUSH ONE ×2 (13:30→15:26)
[2023-09-10] MEDS: AZITHROMYCIN IVPB 500 MG in DEXTROSE 5%-WATER - 250 ML IVPB ONE (13:30)
[2023-09-10 14:12] LABS: N-TERMINAL BNP 2592.6 pg/ml (5-450)
[2023-09-10] MEDS: VANCOMYCIN 1,000 MG in DEXTROSE 5%-WATER - 250 ML IVPB ONE (14:41)
[2023-09-10] MEDS: amLODIPine BESYLATE 10 MG TABLET (FP) PO SCH (15:27)
[2023-09-10] MEDS: ASPIRIN COATED 81 MG TABLET.EC PO SCH (15:27)
[2023-09-10] MEDS: LOSARTAN POTASSIUM 50 MG TABLET PO SCH (15:27)
[2023-09-10] MEDS: ALBUTEROL SO4 0.083% IH SOL 2.5 MG/3 ML VIAL.NEB. NEB PRN (16:07)
[2023-09-10] MEDS: valACYclovir HCL 500 MG TABLET (FP) PO SCH (21:40)
[2023-09-11 07:42] LABS: BASO % 0.2 % (0-2.0); HEMATOCRIT 29.4 % (32.4-45.2); HEMOGLOBIN 9.8 GM/dL (10.7-15.3); LYMPH % 18.9 % (8-40); MCH 30.4 pg (25.7-33.7); MCHC 33.2 g/dl (32.0-36.0); MEAN CELL VOLUME 91.6 fl (80-96); MEAN PLT VOLUME 8.4 fl (7.5-11.1); MONO % 9.6 % (3.8-10.2); NEUT % 71.3 % (42.8-82.8); PLATELET COUNT 367 10^3/uL (134-434); RBC 3.21 M/mm3 (3.60-5.2); RDW 19.5 % (11.6-15.6); WHITE BLOOD COUNT 6.4 K/mm3 (4.0-10.0)
[2023-09-11 08:04] LABS: POTASSIUM 4.6 mmol/L (3.5-5.1)
[2023-09-11 08:10] LABS: BLOOD UREA NITROGEN 15.5 mg/dL (7-18); CALCIUM 8.6 mg/dL (8.5-10.1); MAGNESIUM 2.1 mg/dL (1.8-2.4)
[2023-09-11 08:11] LABS: ALBUMIN 2.7 g/dl (3.4-5.0)
[2023-09-11 08:13] LABS: CREATININE 0.6 mg/dL (0.55-1.3); PHOSPHOROUS 4.1 mg/dL (2.5-4.9)
[2023-09-11 08:15] LABS: BILIRUBIN,TOTAL 0.8 mg/dL (0.2-1); TOT PROT 5.6 g/dl (6.4-8.2)
[2023-09-11] MEDS: ENOXAPARIN NA (PORCINE) 40 MG/0.4 ML DISP.SYRIN SQ SCH (09:42)
[2023-09-11] MEDS: methylPREDNISolone NA SUCC 40 MG/1 ML VIAL IVPUSH SCH (09:42)
[2023-09-11] MEDS: FUROSEMIDE 40 MG/4 ML INJECTABLE VIAL IVPUSH SCH (09:47)
[2023-09-11] MEDS: PANTOPRAZOLE 40 MG TABLET PO SCH (09:48)
[2023-09-11] MEDS: FOLIC ACID 1 MG TABLET (FP) PO SCH (09:48)
[2023-09-11] MEDS: ACETAMINOPHEN 1000 MG/100 ML BAG IVPB ONE (10:58)
[2023-09-11] MEDS: FLUTICASONE/UMECLIDIN/VILANTER(100-62.5-25 TRELEGY ELLIPTA) INAHLER IH SCH (10:59)
[2023-09-12] MEDS: traMADol HCL 50 MG TABLET PO PRN (09:50)
[2023-09-12] MEDS: POLYETHYLENE GLYCOL (HEALTHYLAX) 3350 17 GM PACKET PO PRN (09:52)
[2023-09-12] MEDS ORDERED: ACETAMINOPHEN 325 MG TABLET (FP) PO PRN (15:07)
[2023-09-12 15:12] VITALS: RESP 18
[2023-09-13 08:47] LABS: BASO % 0.3 % (0-2.0); EOS % 0.1 % (0-4.5); HEMATOCRIT 29.9 % (32.4-45.2); HEMOGLOBIN 9.8 GM/dL (10.7-15.3); LYMPH % 21.2 % (8-40); MCH 30.3 pg (25.7-33.7); MCHC 32.8 g/dl (32.0-36.0); MEAN CELL VOLUME 92.6 fl (80-96); MEAN PLT VOLUME 8.2 fl (7.5-11.1); NEUT % 68.4 % (42.8-82.8); PLATELET COUNT 327 10^3/uL (134-434); RBC 3.23 M/mm3 (3.60-5.2); WHITE BLOOD COUNT 6.3 K/mm3 (4.0-10.0)
[2023-09-13 09:06] LABS: POTASSIUM 3.8 mmol/L (3.5-5.1)
[2023-09-13 09:09] LABS: ALBUMIN 2.8 g/dl (3.4-5.0); CALCIUM 8.5 mg/dL (8.5-10.1); MAGNESIUM 2.2 mg/dL (1.8-2.4)
[2023-09-13 09:10] LABS: BLOOD UREA NITROGEN 15.4 mg/dL (7-18)
[2023-09-13 09:13] LABS: CREATININE 0.6 mg/dL (0.55-1.3)
[2023-09-13 09:14] LABS: BILIRUBIN,TOTAL 0.5 mg/dL (0.2-1); TOT PROT 5.5 g/dl (6.4-8.2)
[2023-09-13] MEDS: EMPAGLIFLOZIN (JARDIANCE) 10 MG TABLET PO SCH (09:49)
[2023-09-13] MEDS ORDERED: predniSONE 20 MG TABLET (UD) PO ONE (09:59)
[2023-09-13] MEDS: predniSONE 20 MG TABLET (UD) PO ONE (11:01)
[2023-09-13] MEDS: SPIRONOLACTONE 25 MG TABLET PO SCH (11:02)
[2023-09-13] MEDS: FUROSEMIDE 40 MG TABLET (FP) PO ONE (11:02)
[2023-09-13 15:01] VITALS: BMI 22.1
[2023-09-13 15:05] VITALS: BP 137/54; PULSE 88; TEMP 98
== END 2023-09-13 16:47 | disposition home or self-care (01) | DRG 291 ==
LOC: JER 08:08 → JERBED 12:00 → UNDOADMOB 12:00 → OBSVTOIN 13:28 → INTOOBSV 13:28 → J8W 14:15 → JERBED 14:15 → OBSVTOIN 09-12 13:28 → JERBED 09-12 13:28 → J8W 09-12 13:28
PROVIDERS: ADMIT Internal Medicine; ATTEND Nurse Practitioner Family
DX: I11.0 Hypertensive heart disease with heart failure (principal); I50.31 Acute diastolic (congestive) heart failure; J44.1 Chronic obstructive pulmonary disease with (acute) exacerbation; C90.00 Multiple myeloma not having achieved remission; J96.11 Chronic respiratory failure with hypoxia; E87.20 Acidosis, unspecified; E44.0 Moderate protein-calorie malnutrition; Z68.22 Body mass index [BMI] 22.0-22.9, adult
CPT/HCPCS: 0241U-QW; 36415; 71045-TC-FY; 71275-TC; 76775-TC; 80053; 82803; 83735; 83880; 84100; 84443; 84484; 85025; 85610; 85730; 86850; 86870; 86880; 86900; 86901; 86902; 87040; 93005; 93010; 94010; 94640; 97116-GP; 97161-GP; 99291; G0378; J0131; Q9967

== ENCOUNTER 2024-02-04 08:42 | Emergency (ER) | payer OTHER ==
[2024-02-04 08:50] VITALS: BP 158/66; PULSE 99; RESP 21; TEMP 97.7; BMI 21.2
[2024-02-04 10:30] LABS: BASO % 0.2 % (0-2.0); EOS % 0.3 % (0-4.5); HEMATOCRIT 25.6 % (32.4-45.2); HEMOGLOBIN 8.3 GM/dL (10.7-15.3); LYMPH % 17.9 % (8-40); MCH 31.4 pg (25.7-33.7); MCHC 32.5 g/dl (32.0-36.0); MEAN CELL VOLUME 96.7 fl (80-96); MEAN PLT VOLUME 7.9 fl (7.5-11.1); MONO % 14.2 % (3.8-10.2); NEUT % 67.4 % (42.8-82.8); PLATELET COUNT 295 10^3/uL (134-434); RBC 2.65 M/mm3 (3.60-5.2); RDW 18.5 % (11.6-15.6); WHITE BLOOD COUNT 5.8 K/mm3 (4.0-10.0)
[2024-02-04 10:41] LABS: INR 0.96 (0.83-1.09)
[2024-02-04 10:42] LABS: ACTIVATED PTT 27.4 SECONDS (25.2-36.5)
[2024-02-04 10:48] LABS: POTASSIUM 4.8 mmol/L (3.5-5.1)
[2024-02-04 10:51] LABS: ALBUMIN 3.2 g/dl (3.4-5.0); BLOOD UREA NITROGEN 37.6 mg/dL (7-18); MAGNESIUM 2.6 mg/dL (1.8-2.4)
[2024-02-04 10:54] LABS: CREATININE 1.1 mg/dL (0.55-1.3)
[2024-02-04 10:55] LABS: BILIRUBIN,TOTAL 0.3 mg/dL (0.2-1); TOT PROT 5.7 g/dl (6.4-8.2)
== END 2024-02-04 13:55 | disposition home or self-care (01) ==
LOC: JER 08:42
DX: M79.662 Pain in left lower leg (principal); R60.0 Localized edema
CPT/HCPCS: 36415; 80053; 83735; 85025; 85610; 85730; 86850; 86870; 86880; 86900; 86901; 86902; 93970-TC; 99284-25

== ENCOUNTER 2024-05-23 17:16 | Inpatient (IN) | payer OTHER ==
[2024-05-23] MEDS ORDERED: FUROSEMIDE 40 MG/4 ML INJECTABLE VIAL ONE (19:31)
[2024-05-23 19:58] LABS: HEMATOCRIT 27.1 % (32.4-45.2); HEMOGLOBIN 8.4 GM/dL (10.7-15.3); MCHC 31.1 g/dl (32.0-36.0); MEAN CELL VOLUME 93.2 fl (80-96); PLATELET COUNT 277 10^3/uL (134-434); RDW 17.2 % (11.6-15.6); WHITE BLOOD COUNT 7.6 K/mm3 (4.0-10.0)
[2024-05-23 20:16] LABS: ACTIVATED PTT 29.3 SECONDS (25.2-36.5); INR 0.98 (0.83-1.09); PROTHROMBIN TIME (PATIENT) 11.3 SEC (9.7-13.0)
[2024-05-23 20:17] LABS: POTASSIUM 5.3 mmol/L (3.5-5.1)
[2024-05-23 20:19] LABS: CALCIUM 9.5 mg/dL (8.5-10.1)
[2024-05-23 20:20] LABS: ALBUMIN 3.1 g/dl (3.4-5.0); BLOOD UREA NITROGEN 36.8 mg/dL (7-18); MAGNESIUM 2.2 mg/dL (1.8-2.4)
[2024-05-23 20:23] LABS: CREATININE 1.2 mg/dL (0.55-1.3)
[2024-05-23 20:24] LABS: BILIRUBIN,TOTAL 0.2 mg/dL (0.2-1)
[2024-05-23] MEDS: FUROSEMIDE 40 MG/4 ML INJECTABLE VIAL IVPUSH ONE (20:48)
[2024-05-23 20:57] LABS: ANISOCYTOSIS 2+; MACROCYTOSIS 0; OVALOCYTE 1+
[2024-05-23] MEDS ORDERED: predniSONE 20 MG TABLET (UD) ONE (23:08)
[2024-05-23] MEDS: predniSONE 20 MG TABLET (UD) PO ONE (23:11)
[2024-05-23] MEDS ORDERED: DOCUSATE SODIUM 100 MG CAPSULE (FP) PO PRN (23:16)
[2024-05-24] MEDS ORDERED: ALBUTEROL SO4 2.5/IPRATROPIUM 0.5 INH SOL 3 ML VIAL.NEB. NEB PRN (07:22)
[2024-05-24 08:17] LABS: BASO % 0.2 % (0-2.0); HEMATOCRIT 27.5 % (32.4-45.2); HEMOGLOBIN 8.5 GM/dL (10.7-15.3); LYMPH % 10.2 % (8-40); MCH 29.1 pg (25.7-33.7); MCHC 30.9 g/dl (32.0-36.0); MEAN CELL VOLUME 94.1 fl (80-96); MEAN PLT VOLUME 8.7 fl (7.5-11.1); MONO % 6.3 % (3.8-10.2); NEUT % 83.3 % (42.8-82.8); PLATELET COUNT 257 10^3/uL (134-434); RBC 2.93 M/mm3 (3.60-5.2); RDW 16.5 % (11.6-15.6); WHITE BLOOD COUNT 6.7 K/mm3 (4.0-10.0)
[2024-05-24 08:29] LABS: POTASSIUM 5.3 mmol/L (3.5-5.1)
[2024-05-24 08:34] LABS: CALCIUM 9.2 mg/dL (8.5-10.1)
[2024-05-24 08:38] LABS: CREATININE 1.1 mg/dL (0.55-1.3)
[2024-05-24] MEDS: FUROSEMIDE 40 MG/4 ML INJECTABLE VIAL IVPUSH ONE (08:45)
[2024-05-24] MEDS: FOLIC ACID 1 MG TABLET (FP) PO SCH (09:38)
[2024-05-24] MEDS: FERROUS SO4 325 MG TABLET (FP) PO SCH (09:38)
[2024-05-24] MEDS: valACYclovir HCL 500 MG TABLET (FP) PO SCH (09:38)
[2024-05-24] MEDS: HYDROCHLOROTHIAZIDE 25 MG TABLET (FP) PO SCH (09:38)
[2024-05-24] MEDS: LOSARTAN POTASSIUM 50 MG TABLET PO SCH (09:38)
[2024-05-24] MEDS: ASPIRIN COATED 81 MG TABLET.EC PO SCH (09:39)
[2024-05-24] MEDS: FLUTICASONE/UMECLIDIN/VILANTER(100-62.5-25 TRELEGY ELLIPTA) INAHLER IH SCH (09:57)
[2024-05-24] MEDS: hydrALAZINE HCL 50 MG TABLET (FP) PO SCH (14:44)
[2024-05-24] MEDS: methylPREDNISolone NA SUCC 40 MG/1 ML VIAL IVPUSH SCH (18:16)
[2024-05-24] MEDS: MONTELUKAST NA 10 MG TABLET PO SCH (21:08)
[2024-05-25 07:31] LABS: BASO % 0.2 % (0-2.0); HEMATOCRIT 25.2 % (32.4-45.2); MCH 29.1 pg (25.7-33.7); MCHC 31.6 g/dl (32.0-36.0); MEAN CELL VOLUME 92.3 fl (80-96); MONO % 5.7 % (3.8-10.2); NEUT % 84.1 % (42.8-82.8); PLATELET COUNT 243 10^3/uL (134-434); RBC 2.73 M/mm3 (3.60-5.2); WHITE BLOOD COUNT 8.6 K/mm3 (4.0-10.0)
[2024-05-25 07:43] LABS: POTASSIUM 5.1 mmol/L (3.5-5.1)
[2024-05-25 07:47] LABS: ALBUMIN 2.8 g/dl (3.4-5.0); BLOOD UREA NITROGEN 47.5 mg/dL (7-18)
[2024-05-25 07:48] LABS: CALCIUM 8.1 mg/dL (8.5-10.1)
[2024-05-25 07:51] LABS: BILIRUBIN,TOTAL 0.2 mg/dL (0.2-1); CREATININE 1.2 mg/dL (0.55-1.3); TOT PROT 5.2 g/dl (6.4-8.2)
[2024-05-25] MEDS: ACETAMINOPHEN 325 MG TABLET (FP) PO PRN (08:33)
[2024-05-25] MEDS: ENOXAPARIN NA (PORCINE) 40 MG/0.4 ML DISP.SYRIN SQ SCH (10:29)
[2024-05-25] MEDS: FUROSEMIDE 40 MG/4 ML INJECTABLE VIAL IVPUSH ONE (10:32)
[2024-05-25] MEDS: ALBUTEROL SO4 0.083% IH SOL 2.5 MG/3 ML VIAL.NEB. NEB SCH (15:47)
[2024-05-26 08:45] LABS: BASO % 0.2 % (0-2.0); HEMATOCRIT 27.3 % (32.4-45.2); HEMOGLOBIN 8.5 GM/dL (10.7-15.3); LYMPH % 11.7 % (8-40); MCH 28.8 pg (25.7-33.7); MEAN PLT VOLUME 9.4 fl (7.5-11.1); MONO % 3.9 % (3.8-10.2); NEUT % 84.2 % (42.8-82.8); PLATELET COUNT 263 10^3/uL (134-434); RBC 2.93 M/mm3 (3.60-5.2); RDW 16.2 % (11.6-15.6); WHITE BLOOD COUNT 7.9 K/mm3 (4.0-10.0)
[2024-05-26 09:06] LABS: POTASSIUM 5.4 mmol/L (3.5-5.1)
[2024-05-26 09:13] LABS: CALCIUM 8.3 mg/dL (8.5-10.1)
[2024-05-26 09:14] LABS: BLOOD UREA NITROGEN 54.7 mg/dL (7-18)
[2024-05-26 09:17] LABS: BILIRUBIN,TOTAL 0.4 mg/dL (0.2-1); CREATININE 1.4 mg/dL (0.55-1.3); TOT PROT 5.7 g/dl (6.4-8.2)
[2024-05-26] MEDS: SODIUM ZIRCONIUM CYCLOSILICATE (LOKELMA) 5 GM PACKET PO SCH (17:45)
[2024-05-26] MEDS: methylPREDNISolone NA SUCC 40 MG/1 ML VIAL IVPUSH SCH (21:06)
[2024-05-27 08:26] LABS: BASO % 0.4 % (0-2.0); HEMATOCRIT 25.9 % (32.4-45.2); MCH 28.5 pg (25.7-33.7); MCHC 30.9 g/dl (32.0-36.0); MEAN CELL VOLUME 92.4 fl (80-96); MONO % 6.2 % (3.8-10.2); NEUT % 84.4 % (42.8-82.8); PLATELET COUNT 261 10^3/uL (134-434); RDW 16.3 % (11.6-15.6); WHITE BLOOD COUNT 9.7 K/mm3 (4.0-10.0)
[2024-05-27 09:32] LABS: POTASSIUM 5.3 mmol/L (3.5-5.1)
[2024-05-27 09:40] LABS: BILIRUBIN,TOTAL 0.3 mg/dL (0.2-1)
[2024-05-27 10:00] LABS: BLOOD UREA NITROGEN 69.8 mg/dL (7-18)
[2024-05-27 10:04] LABS: CREATININE 1.4 mg/dL (0.55-1.3)
[2024-05-27 10:05] LABS: TOT PROT 5.3 g/dl (6.4-8.2)
[2024-05-27] MEDS: GABAPENTIN 100 MG CAPSULE PO SCH (21:27)
[2024-05-28 07:14] LABS: BASO % 0.3 % (0-2.0); HEMATOCRIT 24.8 % (32.4-45.2); HEMOGLOBIN 7.7 GM/dL (10.7-15.3); LYMPH % 21.3 % (8-40); MCH 28.8 pg (25.7-33.7); MCHC 31.1 g/dl (32.0-36.0); MEAN CELL VOLUME 92.5 fl (80-96); MEAN PLT VOLUME 9.3 fl (7.5-11.1); NEUT % 67.4 % (42.8-82.8); PLATELET COUNT 236 10^3/uL (134-434); RBC 2.68 M/mm3 (3.60-5.2); RDW 16.4 % (11.6-15.6); WHITE BLOOD COUNT 7.9 K/mm3 (4.0-10.0)
[2024-05-28 07:29] LABS: CALCIUM 8.2 mg/dL (8.5-10.1)
[2024-05-28 07:31] LABS: ALBUMIN 2.8 g/dl (3.4-5.0); BLOOD UREA NITROGEN 82.2 mg/dL (7-18)
[2024-05-28 07:34] LABS: CREATININE 1.5 mg/dL (0.55-1.3)
[2024-05-28 07:36] LABS: BILIRUBIN,TOTAL 0.3 mg/dL (0.2-1)
[2024-05-28] MEDS: FUROSEMIDE 40 MG TABLET (FP) PO SCH (10:58)
[2024-05-28] MEDS: methylPREDNISolone NA SUCC 40 MG/1 ML VIAL IVPUSH SCH (10:58)
[2024-05-28] MEDS: PANTOPRAZOLE 40 MG TABLET PO SCH (15:12)
[2024-05-29 08:26] LABS: BASO % 0.1 % (0-2.0); EOS % 0.1 % (0-4.5); HEMATOCRIT 22.9 % (32.4-45.2); HEMOGLOBIN 7.2 GM/dL (10.7-15.3); LYMPH % 13.5 % (8-40); MCHC 31.7 g/dl (32.0-36.0); MEAN CELL VOLUME 91.5 fl (80-96); MEAN PLT VOLUME 9.2 fl (7.5-11.1); MONO % 10.5 % (3.8-10.2); NEUT % 75.8 % (42.8-82.8); PLATELET COUNT 223 10^3/uL (134-434); RDW 16.2 % (11.6-15.6); WHITE BLOOD COUNT 8.9 K/mm3 (4.0-10.0)
[2024-05-29 08:45] LABS: ALBUMIN 2.8 g/dl (3.4-5.0)
[2024-05-29 08:47] LABS: CALCIUM 8.2 mg/dL (8.5-10.1)
[2024-05-29 08:50] LABS: BILIRUBIN,TOTAL 0.3 mg/dL (0.2-1); CREATININE 1.8 mg/dL (0.55-1.3)
[2024-05-29 23:26] VITALS: BMI 24.9
[2024-05-30 08:00] LABS: BASO % 0.1 % (0-2.0); HEMATOCRIT 28.5 % (32.4-45.2); HEMOGLOBIN 9.4 GM/dL (10.7-15.3); LYMPH % 12.1 % (8-40); MCH 28.1 pg (25.7-33.7); MEAN CELL VOLUME 84.9 fl (80-96); MEAN PLT VOLUME 8.6 fl (7.5-11.1); MONO % 10.4 % (3.8-10.2); NEUT % 77.4 % (42.8-82.8); PLATELET COUNT 227 10^3/uL (134-434); RBC 3.35 M/mm3 (3.60-5.2); RDW 21.7 % (11.6-15.6); WHITE BLOOD COUNT 10.6 K/mm3 (4.0-10.0)
[2024-05-30 08:40] LABS: POTASSIUM 4.9 mmol/L (3.5-5.1)
[2024-05-30 08:46] LABS: CALCIUM 8.5 mg/dL (8.5-10.1)
[2024-05-30 08:47] LABS: BLOOD UREA NITROGEN 82.5 mg/dL (7-18)
[2024-05-30 08:50] LABS: CREATININE 1.4 mg/dL (0.55-1.3)
[2024-05-30 08:51] LABS: BILIRUBIN,TOTAL 0.8 mg/dL (0.2-1)
[2024-05-30 08:52] LABS: TOT PROT 5.4 g/dl (6.4-8.2)
[2024-05-30 09:47] LABS: ANISOCYTOSIS 2+; MACROCYTOSIS 1+
[2024-05-31 08:59] LABS: BASO % 0.1 % (0-2.0); HEMATOCRIT 27.8 % (32.4-45.2); LYMPH % 7.7 % (8-40); MCH 27.9 pg (25.7-33.7); MCHC 32.2 g/dl (32.0-36.0); MEAN CELL VOLUME 86.5 fl (80-96); MEAN PLT VOLUME 8.9 fl (7.5-11.1); NEUT % 88.2 % (42.8-82.8); PLATELET COUNT 263 10^3/uL (134-434); RBC 3.22 M/mm3 (3.60-5.2); RDW 21.7 % (11.6-15.6); WHITE BLOOD COUNT 7.7 K/mm3 (4.0-10.0)
[2024-05-31 09:19] LABS: POTASSIUM 5.5 mmol/L (3.5-5.1)
[2024-05-31 09:28] LABS: ALBUMIN 3.2 g/dl (3.4-5.0); CALCIUM 8.5 mg/dL (8.5-10.1)
[2024-05-31 09:29] LABS: BLOOD UREA NITROGEN 80.9 mg/dL (7-18)
[2024-05-31 09:31] LABS: CREATININE 1.4 mg/dL (0.55-1.3)
[2024-05-31 09:34] LABS: BILIRUBIN,TOTAL 0.3 mg/dL (0.2-1); TOT PROT 5.7 g/dl (6.4-8.2)
[2024-05-31] MEDS: SODIUM ZIRCONIUM CYCLOSILICATE (LOKELMA) 5 GM PACKET PO SCH (13:11)
[2024-06-01 08:19] LABS: BASO % 0.1 % (0-2.0); HEMATOCRIT 25.7 % (32.4-45.2); HEMOGLOBIN 8.1 GM/dL (10.7-15.3); LYMPH % 12.4 % (8-40); MCH 27.7 pg (25.7-33.7); MCHC 31.6 g/dl (32.0-36.0); MEAN CELL VOLUME 87.6 fl (80-96); NEUT % 77.5 % (42.8-82.8); PLATELET COUNT 271 10^3/uL (134-434); RBC 2.93 M/mm3 (3.60-5.2); RDW 21.2 % (11.6-15.6); WHITE BLOOD COUNT 10.5 K/mm3 (4.0-10.0)
[2024-06-01 08:37] LABS: POTASSIUM 4.4 mmol/L (3.5-5.1)
[2024-06-01 08:39] LABS: CALCIUM 8.1 mg/dL (8.5-10.1)
[2024-06-01 08:40] LABS: BLOOD UREA NITROGEN 72.4 mg/dL (7-18)
[2024-06-01 08:43] LABS: CREATININE 1.2 mg/dL (0.55-1.3)
[2024-06-01 08:45] LABS: BILIRUBIN,TOTAL 0.3 mg/dL (0.2-1); TOT PROT 5.2 g/dl (6.4-8.2)
[2024-06-02 05:57] VITALS: RESP 18
[2024-06-02 07:36] LABS: BASO % 0.1 % (0-2.0); EOS % 0.1 % (0-4.5); HEMATOCRIT 25.5 % (32.4-45.2); HEMOGLOBIN 7.9 GM/dL (10.7-15.3); LYMPH % 16.9 % (8-40); MCH 27.2 pg (25.7-33.7); MCHC 30.9 g/dl (32.0-36.0); MEAN CELL VOLUME 87.9 fl (80-96); MEAN PLT VOLUME 8.8 fl (7.5-11.1); MONO % 11.5 % (3.8-10.2); NEUT % 71.4 % (42.8-82.8); PLATELET COUNT 271 10^3/uL (134-434); RDW 20.8 % (11.6-15.6); WHITE BLOOD COUNT 8.5 K/mm3 (4.0-10.0)
[2024-06-02 09:08] LABS: ANISOCYTOSIS 2+; MACROCYTOSIS 1+
[2024-06-02 19:01] VITALS: BP 159/55; PULSE 99; TEMP 98.8
== END 2024-06-02 18:45 | disposition home health service (06) | DRG 291 ==
LOC: JER 17:16 → JERBED 23:11 → J4W 05-24 05:28
PROVIDERS: ADMIT Internal Medicine; ATTEND Internal Medicine
PROC: 30233N1 Transfusion of Nonautologous Red Blood Cells into Peripheral Vein, Percutaneous Approach (ICD-10-PCS; principal; 2024-05-29)
DX: I11.0 Hypertensive heart disease with heart failure (principal); I50.33 Acute on chronic diastolic (congestive) heart failure; C90.00 Multiple myeloma not having achieved remission; J96.11 Chronic respiratory failure with hypoxia; J44.1 Chronic obstructive pulmonary disease with (acute) exacerbation; R64 Cachexia; N17.9 Acute kidney failure, unspecified; I73.9 Peripheral vascular disease, unspecified; R60.0 Localized edema; Z99.81 Dependence on supplemental oxygen; M79.89 Other specified soft tissue disorders; N32.81 Overactive bladder; D64.9 Anemia, unspecified; G62.9 Polyneuropathy, unspecified; E87.5 Hyperkalemia; K44.9 Diaphragmatic hernia without obstruction or gangrene
CPT/HCPCS: 0241U-QW; 36415; 36430; 71045-TC-FY; 71275-TC; 74176-TC; 76604; 76775-TC; 80048; 80053; 82272; 83735; 83880; 84100; 84484; 85025; 85610; 85730; 86850; 86870; 86880; 86900; 86901; 86902; 86922; 93005; 93010; 93306-TC; 93308; 94640; 97116-GP; 97162-GP; 99285-25; P9058; Q9967

== ENCOUNTER 2024-07-01 09:30 | Inpatient (IN) | payer OTHER ==
[2024-07-01] MEDS ORDERED: ALBUTEROL SO4 2.5/IPRATROPIUM 0.5 INH SOL 3 ML VIAL.NEB. NEB ONE (10:17)
[2024-07-01] MEDS: ALBUTEROL SO4 2.5/IPRATROPIUM 0.5 INH SOL 3 ML VIAL.NEB. NEB ONE (10:42)
[2024-07-01 10:50] LABS: VENOUS BASE EXCESS 8.3 mmol/L (-2-2); VENOUS O2 SATURATION 37.2 % (70-80); VENOUS PCO2 60.5 mmHg (38-52); VENOUS PH 7.377 (7.310-7.410)
[2024-07-01 10:58] LABS: BASO % 0.2 % (0-2.0); HEMATOCRIT 24.8 % (32.4-45.2); HEMOGLOBIN 7.7 GM/dL (10.7-15.3); LYMPH % 13.1 % (8-40); MCH 27.9 pg (25.7-33.7); MCHC 31.1 g/dl (32.0-36.0); MEAN CELL VOLUME 89.5 fl (80-96); MEAN PLT VOLUME 8.3 fl (7.5-11.1); MONO % 10.5 % (3.8-10.2); NEUT % 76.2 % (42.8-82.8); PLATELET COUNT 407 10^3/uL (134-434); RBC 2.76 M/mm3 (3.60-5.2); RDW 20.3 % (11.6-15.6); WHITE BLOOD COUNT 9.3 K/mm3 (4.0-10.0)
[2024-07-01 11:12] LABS: ALBUMIN 3.6 g/dl (3.4-5.0); CHLORIDE 85 mmol/L (98-107); CO2 37 mmol/L (21-32); SODIUM 133 mmol/L (136-145)
[2024-07-01 11:13] LABS: BLOOD UREA NITROGEN 50.6 mg/dL (7-18); GLUCOSE,RANDOM 123 mg/dL (74-106); MAGNESIUM 2.6 mg/dL (1.8-2.4)
[2024-07-01 11:16] LABS: CREATININE 1.5 mg/dL (0.55-1.3); SGOT/AST 24 U/L (15-37); SGPT/ALT 16 U/L (13-61)
[2024-07-01 11:17] LABS: BILIRUBIN,TOTAL 0.6 mg/dL (0.2-1)
[2024-07-01 11:18] LABS: TOT PROT 6.5 g/dl (6.4-8.2)
[2024-07-01 11:19] LABS: ALK PHOS 80 U/L (45-117)
[2024-07-01 11:21] LABS: ANION GAP 11 mmol/L (4-13); POTASSIUM 2.9 mmol/L (3.5-5.1)
[2024-07-01 11:23] LABS: CALCIUM 8.4 mg/dL (8.5-10.1)
[2024-07-01] MEDS ORDERED: POTASSIUM CHLORIDE ORAL LIQUID 20 MEQ/15 ML ONE (11:33)
[2024-07-01] MEDS: POTASSIUM CHLORIDE ORAL LIQUID 20 MEQ/15 ML PO ONE (11:48)
[2024-07-01] MEDS ORDERED: KCL 10 MEQ IVPB 10 MEQ/100 ML INFUS.BAG IVPB ONE ×2 (11:58→15:39)
[2024-07-01] MEDS: SODIUM CHLORIDE 0.9% 500 ML INFUS.BAG IV ONE (12:21)
[2024-07-01] MEDS: ALBUTEROL SO4 2.5/IPRATROPIUM 0.5 INH SOL 3 ML VIAL.NEB. NEB SCH (12:21)
[2024-07-01] MEDS: KCL 10 MEQ IVPB 10 MEQ/100 ML INFUS.BAG IVPB SCH ×2 (12:21→17:39)
[2024-07-01] MEDS ORDERED: VANCOMYCIN 1 GM PREMIX (F) 1 GM/200 ML BAG IVPB ONE (14:42)
[2024-07-01] MEDS ORDERED: AZITHROMYCIN IVPB 500 MG/250 ML BAG IVPB ONE (14:50)
[2024-07-01] MEDS: AZITHROMYCIN IVPB 500 MG in DEXTROSE 5%-WATER - 250 ML IVPB ONE (16:38)
[2024-07-01] MEDS: PIPERACILLIN/TAZOB 3.375 GM 3.375 GM in DEXTROSE 5%-WATER - 50 ML IVPB ONE (16:38)
[2024-07-01] MEDS ORDERED: DOCUSATE SODIUM 100 MG CAPSULE (FP) PO PRN (18:14)
[2024-07-01] MEDS ORDERED: POLYETHYLENE GLYCOL (HEALTHYLAX) 3350 17 GM PACKET PO PRN (18:14)
[2024-07-01] MEDS: PIPERACILLIN/TAZOB 3.375 GM 50 ML IVPB ONE ×2 (20:18→20:22)
[2024-07-01] MEDS: AZITHROMYCIN IVPB 500 MG/250 ML BAG IVPB ONE (21:31)
[2024-07-01] MEDS: hydrALAZINE HCL 50 MG TABLET (FP) PO SCH (21:31)
[2024-07-01] MEDS: valACYclovir HCL 500 MG TABLET (FP) PO SCH (21:32)
[2024-07-01] MEDS: GABAPENTIN 100 MG CAPSULE PO SCH (21:32)
[2024-07-01] MEDS: MONTELUKAST NA 10 MG TABLET PO SCH (21:32)
[2024-07-01] MEDS: VANCOMYCIN 1 GM PREMIX (F) 1 GM/200 ML BAG IVPB ONE (23:25)
[2024-07-02] MEDS: EMPAGLIFLOZIN (JARDIANCE) 10 MG TABLET PO SCH (06:15)
[2024-07-02] MEDS: FERROUS SO4 325 MG TABLET (FP) PO SCH (09:17)
[2024-07-02] MEDS: ASPIRIN COATED 81 MG TABLET.EC PO SCH (09:17)
[2024-07-02] MEDS: FOLIC ACID 1 MG TABLET (FP) PO SCH (09:17)
[2024-07-02] MEDS: PANTOPRAZOLE 40 MG TABLET PO SCH (09:17)
[2024-07-02] MEDS: FUROSEMIDE 40 MG/4 ML INJECTABLE VIAL IVPUSH SCH (09:19)
[2024-07-02 10:13] LABS: BASO % 0.2 % (0-2.0); EOS % 0.1 % (0-4.5); HEMATOCRIT 25.8 % (32.4-45.2); HEMOGLOBIN 8.3 GM/dL (10.7-15.3); LYMPH % 9.4 % (8-40); MCH 28.5 pg (25.7-33.7); MCHC 32.2 g/dl (32.0-36.0); MEAN CELL VOLUME 88.7 fl (80-96); MONO % 8.3 % (3.8-10.2); PLATELET COUNT 339 10^3/uL (134-434); RDW 18.7 % (11.6-15.6); WHITE BLOOD COUNT 10.2 K/mm3 (4.0-10.0)
[2024-07-02 10:43] LABS: CALCIUM 7.7 mg/dL (8.5-10.1)
[2024-07-02 10:44] LABS: ALBUMIN 3.1 g/dl (3.4-5.0); BLOOD UREA NITROGEN 34.8 mg/dL (7-18)
[2024-07-02 10:47] LABS: CREATININE 1.2 mg/dL (0.55-1.3)
[2024-07-02 10:49] LABS: BILIRUBIN,TOTAL 0.7 mg/dL (0.2-1); TOT PROT 5.9 g/dl (6.4-8.2)
[2024-07-02] MEDS: POTASSIUM CHLORIDE ORAL LIQUID 20 MEQ/15 ML PO ONE (15:04)
[2024-07-02] MEDS: KCL 10 MEQ IVPB 10 MEQ/100 ML INFUS.BAG IVPB SCH (15:05)
[2024-07-03 08:11] LABS: BASO % 0.2 % (0-2.0); EOS % 0.2 % (0-4.5); HEMATOCRIT 25.5 % (32.4-45.2); HEMOGLOBIN 8.2 GM/dL (10.7-15.3); LYMPH % 12.3 % (8-40); MCH 28.5 pg (25.7-33.7); MCHC 32.2 g/dl (32.0-36.0); MEAN CELL VOLUME 88.4 fl (80-96); MEAN PLT VOLUME 8.1 fl (7.5-11.1); MONO % 11.3 % (3.8-10.2); PLATELET COUNT 350 10^3/uL (134-434); RBC 2.89 M/mm3 (3.60-5.2); RDW 18.7 % (11.6-15.6); WHITE BLOOD COUNT 9.6 K/mm3 (4.0-10.0)
[2024-07-03 08:23] LABS: POTASSIUM 3.2 mmol/L (3.5-5.1)
[2024-07-03 08:28] LABS: CALCIUM 7.6 mg/dL (8.5-10.1)
[2024-07-03 08:29] LABS: ALBUMIN 3.1 g/dl (3.4-5.0)
[2024-07-03 08:33] LABS: BILIRUBIN,TOTAL 0.6 mg/dL (0.2-1); TOT PROT 5.7 g/dl (6.4-8.2)
[2024-07-03] MEDS: POTASSIUM CHLORIDE ORAL LIQUID 20 MEQ/15 ML PO ONE (11:25)
[2024-07-03] MEDS: KCL 10 MEQ IVPB 10 MEQ/100 ML INFUS.BAG IVPB SCH (11:25)
[2024-07-03] MEDS: DOXYCYCLINE INJECTION 100 MG in DEXTROSE 5%-WATER 100 ML IVPB SCH (16:15)
[2024-07-03] MEDS: ALBUTEROL SO4 2.5/IPRATROPIUM 0.5 INH SOL 3 ML VIAL.NEB. NEB PRN (16:44)
[2024-07-03] MEDS: PIPERACILLIN/TAZOB 3.375 GM 50 ML IVPB SCH (18:23)
[2024-07-03] MEDS: BUDESONIDE/FORMETEROL FUMARATE 160/4.5 mcg INHALER IH SCH (22:27)
[2024-07-04 10:06] LABS: BASO % 0.3 % (0-2.0); EOS % 0.3 % (0-4.5); HEMATOCRIT 24.4 % (32.4-45.2); HEMOGLOBIN 7.6 GM/dL (10.7-15.3); LYMPH % 10.3 % (8-40); MCH 27.7 pg (25.7-33.7); MCHC 31.2 g/dl (32.0-36.0); MEAN CELL VOLUME 88.8 fl (80-96); MONO % 7.9 % (3.8-10.2); NEUT % 81.2 % (42.8-82.8); PLATELET COUNT 364 10^3/uL (134-434); RBC 2.75 M/mm3 (3.60-5.2); RDW 19.2 % (11.6-15.6)
[2024-07-04 11:29] LABS: POTASSIUM 3.5 mmol/L (3.5-5.1)
[2024-07-04 11:31] LABS: ALBUMIN 2.8 g/dl (3.4-5.0); CALCIUM 7.2 mg/dL (8.5-10.1)
[2024-07-04 11:32] LABS: BLOOD UREA NITROGEN 22.5 mg/dL (7-18)
[2024-07-04 11:35] LABS: CREATININE 1.1 mg/dL (0.55-1.3)
[2024-07-04 11:36] LABS: BILIRUBIN,TOTAL 0.4 mg/dL (0.2-1); TOT PROT 5.4 g/dl (6.4-8.2)
[2024-07-04] MEDS: LACTULOSE 20 GM/30 ML UDC (FOR ORAL USE ONLY) PO ONE (11:40)
[2024-07-04] MEDS: methylPREDNISolone NA SUCC 40 MG/1 ML VIAL IVPUSH SCH (12:32)
[2024-07-04] MEDS: ALBUTEROL SO4 2.5/IPRATROPIUM 0.5 INH SOL 3 ML VIAL.NEB. NEB SCH (15:46)
[2024-07-04] MEDS: POTASSIUM CHLORIDE ORAL LIQUID 20 MEQ/15 ML PO SCH (17:14)
[2024-07-05] MEDS: CEFTRIAXONE 1 G/50 ML PREMIX 50 ML IVPB SCH (09:21)
[2024-07-05 09:42] LABS: BASO % 0.3 % (0-2.0); HEMOGLOBIN 7.3 GM/dL (10.7-15.3); LYMPH % 11.7 % (8-40); MCH 28.3 pg (25.7-33.7); MCHC 31.6 g/dl (32.0-36.0); MEAN CELL VOLUME 89.5 fl (80-96); MEAN PLT VOLUME 7.9 fl (7.5-11.1); MONO % 7.6 % (3.8-10.2); NEUT % 80.4 % (42.8-82.8); PLATELET COUNT 354 10^3/uL (134-434); RBC 2.57 M/mm3 (3.60-5.2); RDW 18.5 % (11.6-15.6); WHITE BLOOD COUNT 10.2 K/mm3 (4.0-10.0)
[2024-07-05 10:03] LABS: CHLORIDE 97 mmol/L (98-107); SODIUM 134 mmol/L (136-145)
[2024-07-05 10:06] LABS: POTASSIUM 2.9 mmol/L (3.5-5.1)
[2024-07-05 10:08] LABS: ALBUMIN 2.9 g/dl (3.4-5.0); ANION GAP 11 mmol/L (4-13); CO2 26 mmol/L (21-32); GLUCOSE,RANDOM 198 mg/dL (74-106); MAGNESIUM 1.9 mg/dL (1.8-2.4)
[2024-07-05 10:11] LABS: CREATININE 1.2 mg/dL (0.55-1.3); SGOT/AST 9 U/L (15-37); SGPT/ALT 12 U/L (13-61)
[2024-07-05 10:13] LABS: BILIRUBIN,TOTAL 0.4 mg/dL (0.2-1); TOT PROT 5.6 g/dl (6.4-8.2)
[2024-07-05 10:15] LABS: ALK PHOS 64 U/L (45-117)
[2024-07-05] MEDS: POTASSIUM CHLORIDE ORAL LIQUID 20 MEQ/15 ML PO ONE (12:12)
[2024-07-05] MEDS: KCL 10 MEQ IVPB 10 MEQ/100 ML INFUS.BAG IVPB SCH ×2 (13:31→18:25)
[2024-07-06 09:01] LABS: BASO % 0.5 % (0-2.0); HEMATOCRIT 23.2 % (32.4-45.2); HEMOGLOBIN 7.2 GM/dL (10.7-15.3); LYMPH % 15.7 % (8-40); MCH 27.8 pg (25.7-33.7); MCHC 31.2 g/dl (32.0-36.0); MEAN CELL VOLUME 89.1 fl (80-96); MEAN PLT VOLUME 7.7 fl (7.5-11.1); MONO % 8.8 % (3.8-10.2); PLATELET COUNT 375 10^3/uL (134-434); RDW 19.3 % (11.6-15.6); WHITE BLOOD COUNT 9.4 K/mm3 (4.0-10.0)
[2024-07-06 09:19] LABS: CHLORIDE 101 mmol/L (98-107); POTASSIUM 3.7 mmol/L (3.5-5.1); SODIUM 136 mmol/L (136-145)
[2024-07-06 09:46] LABS: ANION GAP 8 mmol/L (4-13); BLOOD UREA NITROGEN 27.7 mg/dL (7-18); CO2 26 mmol/L (21-32); GLUCOSE,RANDOM 98 mg/dL (74-106)
[2024-07-06 09:47] LABS: CALCIUM 6.9 mg/dL (8.5-10.1)
[2024-07-06 09:48] LABS: SGPT/ALT 12 U/L (13-61)
[2024-07-06 09:49] LABS: SGOT/AST 13 U/L (15-37)
[2024-07-06 09:50] LABS: BILIRUBIN,TOTAL 0.4 mg/dL (0.2-1)
[2024-07-06 09:51] LABS: ALK PHOS 59 U/L (45-117); TOT PROT 5.8 g/dl (6.4-8.2)
[2024-07-06] MEDS: CALCIUM CARBONATE 650 MG TABLET PO SCH (21:00)
[2024-07-07 09:54] LABS: BASO % 0.2 % (0-2.0); EOS % 0.1 % (0-4.5); HEMATOCRIT 24.1 % (32.4-45.2); HEMOGLOBIN 7.5 GM/dL (10.7-15.3); LYMPH % 17.5 % (8-40); MCH 27.6 pg (25.7-33.7); MEAN CELL VOLUME 89.2 fl (80-96); MEAN PLT VOLUME 7.9 fl (7.5-11.1); MONO % 8.6 % (3.8-10.2); NEUT % 73.6 % (42.8-82.8); PLATELET COUNT 398 10^3/uL (134-434); RDW 19.5 % (11.6-15.6); WHITE BLOOD COUNT 8.3 K/mm3 (4.0-10.0)
[2024-07-07 10:28] LABS: POTASSIUM 3.6 mmol/L (3.5-5.1)
[2024-07-07 10:31] LABS: ALBUMIN 3.1 g/dl (3.4-5.0)
[2024-07-07 10:32] LABS: BLOOD UREA NITROGEN 30.6 mg/dL (7-18)
[2024-07-07 10:35] LABS: CREATININE 1.1 mg/dL (0.55-1.3)
[2024-07-07 10:36] LABS: BILIRUBIN,TOTAL 0.6 mg/dL (0.2-1); TOT PROT 5.8 g/dl (6.4-8.2)
[2024-07-07] MEDS: ACETAMINOPHEN 1000 MG/100 ML BAG IVPB PRN (11:18)
[2024-07-07] MEDS: LIDOCAINE 5% TOPICAL PATCH TP SCH (18:25)
[2024-07-07 18:30] LABS: ARTERIAL BLD GAS O2 SATURATION 97.2 % (95-98); ARTERIAL BLOOD GAS PO2 85.3 mmHg (80-100); ARTERIAL BLOOD GAS pH 7.487 (7.350-7.450)
[2024-07-07 18:33] LABS: ALLENS TEST POSITIVE
[2024-07-07] MEDS: FUROSEMIDE 40 MG/4 ML INJECTABLE VIAL IVPUSH ONE (18:38)
[2024-07-07] MEDS: LIDOCAINE PATCH REMOVAL MC SCH (21:09)
[2024-07-08] MEDS: DOXYCYCLINE HYCLATE 100 MG CAPSULE PO SCH (09:22)
[2024-07-08 09:25] LABS: BASO % 0.2 % (0-2.0); EOS % 0.1 % (0-4.5); HEMATOCRIT 26.9 % (32.4-45.2); HEMOGLOBIN 8.6 GM/dL (10.7-15.3); LYMPH % 16.7 % (8-40); MCH 27.5 pg (25.7-33.7); MEAN CELL VOLUME 85.8 fl (80-96); MEAN PLT VOLUME 7.5 fl (7.5-11.1); MONO % 11.8 % (3.8-10.2); NEUT % 71.2 % (42.8-82.8); PLATELET COUNT 367 10^3/uL (134-434); RBC 3.13 M/mm3 (3.60-5.2); RDW 19.7 % (11.6-15.6); WHITE BLOOD COUNT 7.2 K/mm3 (4.0-10.0)
[2024-07-08 09:29] LABS: POTASSIUM 3.6 mmol/L (3.5-5.1)
[2024-07-08 09:31] LABS: CALCIUM 7.2 mg/dL (8.5-10.1)
[2024-07-08 09:32] LABS: BLOOD UREA NITROGEN 30.9 mg/dL (7-18)
[2024-07-08 09:37] LABS: BILIRUBIN,TOTAL 0.6 mg/dL (0.2-1); TOT PROT 5.6 g/dl (6.4-8.2)
[2024-07-09] MEDS: ACETAMINOPHEN 325 MG TABLET (FP) PO ONE (03:47)
[2024-07-09 09:37] LABS: BASO % 0.3 % (0-2.0); EOS % 0.1 % (0-4.5); HEMATOCRIT 28.2 % (32.4-45.2); HEMOGLOBIN 8.9 GM/dL (10.7-15.3); LYMPH % 18.9 % (8-40); MCH 27.8 pg (25.7-33.7); MCHC 31.6 g/dl (32.0-36.0); MEAN CELL VOLUME 87.7 fl (80-96); MEAN PLT VOLUME 7.9 fl (7.5-11.1); MONO % 8.3 % (3.8-10.2); NEUT % 72.4 % (42.8-82.8); PLATELET COUNT 286 10^3/uL (134-434); RBC 3.22 M/mm3 (3.60-5.2); RDW 19.7 % (11.6-15.6); WHITE BLOOD COUNT 10.2 K/mm3 (4.0-10.0)
[2024-07-09 09:56] LABS: POTASSIUM 3.2 mmol/L (3.5-5.1)
[2024-07-09 09:59] LABS: ALBUMIN 3.1 g/dl (3.4-5.0); BLOOD UREA NITROGEN 38.2 mg/dL (7-18)
[2024-07-09 10:02] LABS: CREATININE 1.2 mg/dL (0.55-1.3)
[2024-07-09 10:04] LABS: BILIRUBIN,TOTAL 0.4 mg/dL (0.2-1); TOT PROT 5.8 g/dl (6.4-8.2)
[2024-07-09] MEDS: SENNOSIDES 8.6MG TABLET (FP) PO PRN (11:18)
[2024-07-09] MEDS: POTASSIUM CHLORIDE ORAL LIQUID 20 MEQ/15 ML PO ONE (12:36)
[2024-07-09] MEDS: KCL 10 MEQ IVPB 10 MEQ/100 ML INFUS.BAG IVPB SCH (12:36)
[2024-07-10 09:08] LABS: BASO % 0.1 % (0-2.0); HEMATOCRIT 24.3 % (32.4-45.2); HEMOGLOBIN 7.9 GM/dL (10.7-15.3); LYMPH % 14.6 % (8-40); MCHC 32.5 g/dl (32.0-36.0); MEAN CELL VOLUME 86.2 fl (80-96); MEAN PLT VOLUME 7.7 fl (7.5-11.1); MONO % 9.9 % (3.8-10.2); NEUT % 75.4 % (42.8-82.8); PLATELET COUNT 335 10^3/uL (134-434); RBC 2.82 M/mm3 (3.60-5.2); RDW 19.4 % (11.6-15.6); WHITE BLOOD COUNT 8.9 K/mm3 (4.0-10.0)
[2024-07-10 10:51] LABS: POTASSIUM 3.5 mmol/L (3.5-5.1)
[2024-07-10 10:52] LABS: CALCIUM 8.9 mg/dL (8.5-10.1)
[2024-07-10 10:53] LABS: ALBUMIN 2.8 g/dl (3.4-5.0); BLOOD UREA NITROGEN 37.4 mg/dL (7-18)
[2024-07-10 10:56] LABS: CREATININE 0.9 mg/dL (0.55-1.3)
[2024-07-10 10:57] LABS: BILIRUBIN,TOTAL 0.6 mg/dL (0.2-1); TOT PROT 5.3 g/dl (6.4-8.2)
[2024-07-10] MEDS: predniSONE 20 MG TABLET (UD) PO SCH (16:52)
[2024-07-10 23:57] VITALS: BMI 21.6
[2024-07-11 09:59] VITALS: RESP 18
[2024-07-11 13:32] LABS: HEMATOCRIT 30.7 % (32.4-45.2); HEMOGLOBIN 9.5 GM/dL (10.7-15.3); MCH 27.4 pg (25.7-33.7); MCHC 30.8 g/dl (32.0-36.0); MEAN CELL VOLUME 88.8 fl (80-96); MEAN PLT VOLUME 7.6 fl (7.5-11.1); PLATELET COUNT 370 10^3/uL (134-434); RBC 3.46 M/mm3 (3.60-5.2); RDW 19.7 % (11.6-15.6); WHITE BLOOD COUNT 11.8 K/mm3 (4.0-10.0)
[2024-07-11 14:51] VITALS: BP 126/46; PULSE 91; TEMP 99.3
== END 2024-07-11 17:00 | disposition home health service (06) | DRG 291 ==
LOC: JER 09:30 → JERBED 15:14 → J6S 17:22
PROVIDERS: ADMIT Internal Medicine; ATTEND Internal Medicine
PROC: 30233N1 Transfusion of Nonautologous Red Blood Cells into Peripheral Vein, Percutaneous Approach (ICD-10-PCS; principal; 2024-07-01)
DX: I11.0 Hypertensive heart disease with heart failure (principal); E43 Unspecified severe protein-calorie malnutrition; I50.33 Acute on chronic diastolic (congestive) heart failure; J18.9 Pneumonia, unspecified organism; C90.00 Multiple myeloma not having achieved remission; N17.9 Acute kidney failure, unspecified; J96.11 Chronic respiratory failure with hypoxia; J44.1 Chronic obstructive pulmonary disease with (acute) exacerbation; Z99.81 Dependence on supplemental oxygen; I73.9 Peripheral vascular disease, unspecified; D64.9 Anemia, unspecified; E87.6 Hypokalemia; G62.9 Polyneuropathy, unspecified; S92.911A Unspecified fracture of right toe(s), initial encounter for closed fracture; X58.XXXA Exposure to other specified factors, initial encounter; Y93.89 Activity, other specified; Y92.89 Other specified places as the place of occurrence of the external cause; Y99.8 Other external cause status
CPT/HCPCS: 0241U-QW; 36415; 36430; 36600; 70450-TC; 71045-TC-FY; 71275-TC; 73610-TC-LT-FY; 73610-TC-RT-FY; 73630-TC-LT; 73630-TC-RT-FY; 80053; 82272; 82803; 82962; 83735; 83880; 84484; 84550; 85025; 85027; 86850; 86870; 86880; 86900; 86901; 86902; 86922; 87040; 93005; 93010; 94640; 97116-GP; 97162-GP; 99285-25; J0131; P9058

== ENCOUNTER 2024-10-12 05:34 | Day surgery (SDC) | payer OTHER ==
[2024-10-06 17:46] VITALS: BMI 22.6
[2024-10-12] MEDS ORDERED: VERAPAMIL HCL 5 MG/2 ML VIAL IVPUSH ONE (08:28)
[2024-10-12] MEDS ORDERED: MIDAZOLAM HCL 2 MG/2 ML SINGLE DOSE VIAL ONE (08:40)
[2024-10-12] MEDS ORDERED: PROPOFOL 20 ML ONE (08:41)
[2024-10-12] MEDS ORDERED: ONDANSETRON 4 MG/2 ML VIAL ONE (08:42)
[2024-10-12] MEDS ORDERED: GLYCOPYRROLATE 0.2 MG/1 ML VIAL ONE (08:42)
[2024-10-12] MEDS ORDERED: LIDOCAINE HCL/PF 2% SDV 5ML VIAL ONE (08:42)
[2024-10-12] MEDS ORDERED: SODIUM CHLORIDE 1,000 ML IV SCH (09:15)
[2024-10-12] MEDS ORDERED: HEPARIN NA (PORCINE) 5,000 UNITS/ML 1ML VIAL ONE ×2 (09:26→09:47)
[2024-10-12] MEDS ORDERED: ALBUTEROL SO4 HFA INHALER IH ONE (09:26)
[2024-10-12] MEDS ORDERED: LIDOCAINE HCL 1%, 10 MG/ML (20ML VIAL) ONE (09:26)
[2024-10-12] MEDS ORDERED: DEXMEDETOMIDINE HCL 200 MCG/2 ML IVPB ONE (09:28)
[2024-10-12] MEDS ORDERED: NITROGLYCERIN 50 MG/10 ML VIAL IVPB ONE (09:47)
[2024-10-12] MEDS ORDERED: MAGNESIUM SULF 50% (8.12 MEQ/2 ML-1 GM VIAL) ONE (10:15)
[2024-10-12] MEDS ORDERED: ACETAMINOPHEN INJECTION 100 ML ONE (10:24)
[2024-10-12] MEDS ORDERED: ceFAZolin SODIUM 1 GM VIAL ONE (10:39)
[2024-10-12] MEDS: ceFAZolin SODIUM 1 GM VIAL IVPB ONE ×2 (10:40)
[2024-10-12] MEDS: LIDOCAINE HCL 1%, 10 MG/ML (20ML VIAL) INF ONE ×2 (10:40)
[2024-10-12] MEDS: LIDOCAINE HCL 1%, 10 MG/ML (50 mL VIAL) INF ONE ×2 (10:40)
[2024-10-12] MEDS ORDERED: CLOPIDOGREL BISULFATE 75 MG TABLET (FP) ONE (12:51)
[2024-10-12] MEDS ORDERED: CLOPIDOGREL BISULFATE 300 MG TABLET PO ONE (13:00)
[2024-10-12] MEDS: CLOPIDOGREL BISULFATE 75 MG TABLET (FP) PO ONE (13:55)
[2024-10-12 15:55] VITALS: TEMP 98.1
[2024-10-12 16:56] VITALS: BP 146/70; PULSE 88; RESP 24
== END 2024-10-12 16:20 | disposition home or self-care (01) ==
LOC: JASU-SURG 05:34
PROVIDERS: ATTEND Surgery
PROC: 047Y3ZZ Dilation of Lower Artery, Percutaneous Approach (ICD-10-PCS; 2024-10-12)
PROC: 047L3DZ Dilation of Left Femoral Artery with Intraluminal Device, Percutaneous Approach (ICD-10-PCS; principal; 2024-10-12 09:00)
DX: I70.221 Atherosclerosis of native arteries of extremities with rest pain, right leg (principal); I70.293 Other atherosclerosis of native arteries of extremities, bilateral legs
CPT/HCPCS: 37224; 37226; C1877; 76000-TC-FY; 94760; C1887; J1644

== ENCOUNTER 2024-12-20 10:00 | Inpatient (IN) | payer OTHER ==
[2024-12-19 12:32] VITALS: BMI 22.3
[2025-01-11] MEDS ORDERED: LIDOCAINE HCL 1%, 10 MG/ML (20ML VIAL) ONE (07:20)
[2025-01-11] MEDS ORDERED: HEPARIN NA (PORCINE) 5,000 UNITS/ML 1ML VIAL ONE (07:20)
[2025-01-11] MEDS ORDERED: LIDOCAINE HCL 0.5%, 5 MG/ML (50mL SDVIAL) ONE (07:53)
[2025-01-11] MEDS ORDERED: LIDOCAINE HCL 2% 100 MG/5 ML DISP.SYRIN ONE (08:04)
[2025-01-11] MEDS ORDERED: PROPOFOL 20 ML ONE (08:04)
[2025-01-11] MEDS ORDERED: ROCURONIUM BROMIDE 50 MG/5 ML SYRINGE ONE (08:05)
[2025-01-11] MEDS ORDERED: DEXAMETHASONE SOD PHOSPHATE 4 MG/1 ML VIAL ONE (08:37)
[2025-01-11] MEDS ORDERED: ONDANSETRON 4 MG/2 ML VIAL ONE (08:37)
[2025-01-11] MEDS ORDERED: PHENYLEPHRINE HCL 10 MG/1 ML SINGLE DOSE VIAL ONE ×2 (09:03)
[2025-01-11] MEDS ORDERED: ESMOLOL HCL 100,000 MCG/10 ML VIAL ONE (09:23)
[2025-01-11] MEDS ORDERED: PROTAMINE SULFATE 50 MG/5 ML VIAL ONE (10:27)
[2025-01-11] MEDS ORDERED: ONDANSETRON 4 MG/2 ML VIAL IVPUSH PRN ×2 (11:23→11:57)
[2025-01-11] MEDS ORDERED: ACETAMINOPHEN INJECTION 100 ML ONE (11:35)
[2025-01-11] MEDS: ACETAMINOPHEN 1000 MG/100 ML BAG IVPB ONE (11:36)
[2025-01-11] MEDS ORDERED: POLYETHYLENE GLYCOL (HEALTHYLAX) 3350 17 GM PACKET PO PRN (11:39)
[2025-01-11] MEDS ORDERED: ALBUTEROL SO4 0.083% IH SOL 2.5 MG/3 ML VIAL.NEB. NEB PRN (12:05)
[2025-01-11] MEDS: LACTATED RINGERS SOLUTION 1,000 ML IV SCH (12:48)
[2025-01-11] MEDS: ACETAMINOPHEN 500 MG TABLET (FP) PO SCH (12:48)
[2025-01-11] MEDS: hydrALAZINE HCL 50 MG TABLET (FP) PO SCH (15:02)
[2025-01-11] MEDS: CEFAZOLIN 1 GM in DEXTROSE 5%-WATER - 50 ML IVPB SCH (16:47)
[2025-01-11] MEDS: ACETAMINOPHEN 1000 MG/100 ML BAG IVPB SCH (17:09)
[2025-01-11] MEDS: INSULIN ASPART SLIDING SCALE (NOVOLOG) 1 VIAL SQ SCH (17:46)
[2025-01-11] MEDS: MONTELUKAST NA 10 MG TABLET PO SCH (21:22)
[2025-01-11] MEDS: GABAPENTIN 100 MG CAPSULE PO SCH (21:22)
[2025-01-11] MEDS: ASPIRIN COATED 81 MG TABLET.EC PO SCH (21:22)
[2025-01-11] MEDS: valACYclovir HCL 500 MG TABLET (FP) PO SCH (21:22)
[2025-01-11] MEDS: HEPARIN NA (PORCINE) 5,000 UNITS/ML 1ML VIAL SQ SCH (21:22)
[2025-01-11] MEDS: MUPIROCIN 2% TOPICAL OINTMENT FOR DECOLONIZATION NS SCH (21:23)
[2025-01-11] MEDS: CHLORHEXIDINE GLUCONATE 4% CLEANSER FOR DECOLONIZATION TP SCH (21:27)
[2025-01-11] MEDS ORDERED: ASPIRIN COATED 81 MG TABLET.EC PO SCH (22:00)
[2025-01-11] MEDS: ROSUVASTATIN CA 5 MG TABLET PO SCH (22:46)
[2025-01-11] MEDS: CALCIUM CARBONATE 650 MG TABLET PO SCH (22:46)
[2025-01-11] MEDS: BUDESONIDE/FORMETEROL FUMARATE 160/4.5 mcg INHALER IH SCH (23:44)
[2025-01-12 06:53] LABS: ABSOLUTE IMMATURE GRANULOCYTES 0.03 x10^3/uL (0.0-0.031); BASOPHILS # 0.01 x10^3/uL (0.01-0.08); EOSINOPHIL % 0.0 % (0.7-5.8); EOSINOPHILS # 0.00 x10^3/uL (0.04-0.36); MCHC 31.2 g/dl (32.2-35.5); MEAN CELL VOLUME 94.2 fl (79.4-94.8); MEAN PLT VOLUME 10.9 fl (9.4-12.3); MONOCYTE # 1.14 x10^3/uL (0.24-0.86); MONOCYTE % 14.3 % (4.7-12.5); RDW 15.3 % (12.4-16.6)
[2025-01-12 07:59] LABS: GLUCOSE,RANDOM 80 mg/dL (74-106); TOT PROT 5.6 g/dl (6.4-8.2)
[2025-01-12 08:00] LABS: CO2 32 mmol/L (21-32)
[2025-01-12 08:02] LABS: ALK PHOS 62 U/L (40-150)
[2025-01-12 08:05] LABS: CREATININE 0.97 mg/dL (0.55-1.3); SGOT/AST 15 U/L (5-34)
[2025-01-12] MEDS: morphine CARPU-JECT 2 MG/1 ML DISP.SYRIN IVPUSH PRN (08:13)
[2025-01-12 08:17] LABS: SGPT/ALT < 6 U/L (0-55)
[2025-01-12] MEDS: POTASSIUM CHLORIDE ORAL LIQUID 20 MEQ/15 ML PO ONE ×3 (09:27→14:26)
[2025-01-12] MEDS: KCL 10 MEQ IVPB 10 MEQ/100 ML INFUS.BAG IVPB SCH (09:28)
[2025-01-12] MEDS: HYDROCHLOROTHIAZIDE 25 MG TABLET (FP) PO SCH (09:29)
[2025-01-12] MEDS: CLOPIDOGREL BISULFATE 75 MG TABLET (FP) PO SCH (09:29)
[2025-01-12] MEDS: FERROUS SO4 325 MG TABLET (FP) PO SCH (09:29)
[2025-01-12] MEDS: FOLIC ACID 1 MG TABLET (FP) PO SCH (09:29)
[2025-01-12] MEDS: amLODIPine BESYLATE 5 MG TABLET (FP) PO SCH (09:29)
[2025-01-12] MEDS: FUROSEMIDE 40 MG TABLET (FP) PO SCH (09:30)
[2025-01-12] MEDS ORDERED: POTASSIUM CHLORIDE TABS 20 MEQ TABLET.ER (FP) PO SCH (10:00)
[2025-01-12] MEDS ORDERED: FLUTICASONE/UMECLIDIN/VILANTER(100-62.5-25 TRELEGY ELLIPTA) INAHLER IH SCH (10:00)
[2025-01-12] MEDS ORDERED: ALBUTEROL SO4 HFA INHALER IH PRN ×2 (11:39→17:10)
[2025-01-12] MEDS: ACETAMINOPHEN 500 MG TABLET (FP) PO SCH ×2 (12:22→21:30)
[2025-01-12] MEDS ORDERED: ONDANSETRON 4 MG/2 ML VIAL IVPUSH PRN (17:10)
[2025-01-12] MEDS ORDERED: ALBUTEROL SO4 0.083% IH SOL 2.5 MG/3 ML VIAL.NEB. NEB PRN (17:10)
[2025-01-12] MEDS ORDERED: POLYETHYLENE GLYCOL (HEALTHYLAX) 3350 17 GM PACKET PO PRN (17:10)
[2025-01-12] MEDS ORDERED: morphine CARPU-JECT 2 MG/1 ML DISP.SYRIN IVPUSH PRN (17:10)
[2025-01-12 19:07] LABS: GLUCOSE,RANDOM 117.0 mg/dL (74-106)
[2025-01-12] MEDS: MONTELUKAST NA 10 MG TABLET PO SCH (21:31)
[2025-01-12] MEDS: ROSUVASTATIN CA 5 MG TABLET PO SCH (21:31)
[2025-01-12] MEDS: ASPIRIN COATED 81 MG TABLET.EC PO SCH (21:31)
[2025-01-12] MEDS: GABAPENTIN 100 MG CAPSULE PO SCH (21:31)
[2025-01-12] MEDS: valACYclovir HCL 500 MG TABLET (FP) PO SCH (21:32)
[2025-01-12] MEDS: hydrALAZINE HCL 50 MG TABLET (FP) PO SCH (21:32)
[2025-01-12] MEDS: HEPARIN NA (PORCINE) 5,000 UNITS/ML 1ML VIAL SQ SCH (21:32)
[2025-01-12] MEDS: CALCIUM CARBONATE 650 MG TABLET PO SCH (21:35)
[2025-01-12] MEDS ORDERED: MUPIROCIN 2% TOPICAL OINTMENT FOR DECOLONIZATION NS SCH (22:00)
[2025-01-12] MEDS ORDERED: CHLORHEXIDINE GLUCONATE 4% CLEANSER FOR DECOLONIZATION TP SCH (22:00)
[2025-01-12 22:50] LABS: CO2 25.0 mmol/L (21-32)
[2025-01-12 22:54] LABS: CREATININE 0.98 mg/dL (0.55-1.3)
[2025-01-12] MEDS: BUDESONIDE/FORMETEROL FUMARATE 160/4.5 mcg INHALER IH SCH (22:54)
[2025-01-13 06:55] LABS: ABSOLUTE IMMATURE GRANULOCYTES 0.02 x10^3/uL (0.0-0.031); BASOPHILS # 0.00 x10^3/uL (0.01-0.08); EOSINOPHIL % 0.2 % (0.7-5.8); EOSINOPHILS # 0.01 x10^3/uL (0.04-0.36); MCHC 30.7 g/dl (32.2-35.5); MEAN CELL VOLUME 95.2 fl (79.4-94.8); MEAN PLT VOLUME 11.8 fl (9.4-12.3); MONOCYTE # 0.83 x10^3/uL (0.24-0.86); MONOCYTE % 15.1 % (4.7-12.5); RDW 15.1 % (12.4-16.6)
[2025-01-13 07:31] VITALS: RESP 20
[2025-01-13 08:15] LABS: GLUCOSE,RANDOM 86 mg/dL (74-106); TOT PROT 5.2 g/dl (6.4-8.2)
[2025-01-13 08:16] LABS: CO2 33 mmol/L (21-32)
[2025-01-13 08:18] LABS: ALK PHOS 59 U/L (40-150)
[2025-01-13 08:20] LABS: SGPT/ALT < 6 U/L (0-55)
[2025-01-13 08:21] LABS: CREATININE 0.91 mg/dL (0.55-1.3); SGOT/AST 14 U/L (5-34)
[2025-01-13] MEDS ORDERED: FLUTICASONE/UMECLIDIN/VILANTER(100-62.5-25 TRELEGY ELLIPTA) INAHLER IH SCH (10:00)
[2025-01-13] MEDS: CLOPIDOGREL BISULFATE 75 MG TABLET (FP) PO SCH (10:47)
[2025-01-13] MEDS: FOLIC ACID 1 MG TABLET (FP) PO SCH (10:47)
[2025-01-13] MEDS: NAPH,MB-DB/K PH,MBDB POWDER PACKET PO ONE (10:47)
[2025-01-13] MEDS: amLODIPine BESYLATE 5 MG TABLET (FP) PO SCH (10:48)
[2025-01-13] MEDS: FUROSEMIDE 40 MG TABLET (FP) PO SCH (10:48)
[2025-01-13] MEDS: HYDROCHLOROTHIAZIDE 25 MG TABLET (FP) PO SCH (10:48)
[2025-01-13] MEDS: FERROUS SO4 325 MG TABLET (FP) PO SCH (10:48)
[2025-01-13] MEDS: MULTIVITAMINS (DAILY MVI) TABLET (FP) PO ONE (10:48)
[2025-01-13] MEDS: POTASSIUM CHLORIDE ORAL LIQUID 20 MEQ/15 ML PO ONE (10:49)
[2025-01-13 11:22] VITALS: BP 141/50; PULSE 75; TEMP 98
== END 2025-01-13 11:33 | disposition home or self-care (01) | DRG 26 ==
LOC: J2C 01-11 06:10 → JICU 01-11 13:27 → J8W 01-12 16:37
PROVIDERS: ADMIT Surgery; ATTEND Nurse Practitioner Family
PROC: 03UK3KZ Supplement Right Internal Carotid Artery with Nonautologous Tissue Substitute, Percutaneous Approach (ICD-10-PCS; 2025-01-11)
PROC: 03CK3ZZ Extirpation of Matter from Right Internal Carotid Artery, Percutaneous Approach (ICD-10-PCS; principal; 2025-01-11 08:00)
DX: I65.21 Occlusion and stenosis of right carotid artery (principal); C90.00 Multiple myeloma not having achieved remission; J96.10 Chronic respiratory failure, unspecified whether with hypoxia or hypercapnia; I50.32 Chronic diastolic (congestive) heart failure; J44.9 Chronic obstructive pulmonary disease, unspecified; I73.9 Peripheral vascular disease, unspecified; K75.81 Nonalcoholic steatohepatitis (NASH); E87.6 Hypokalemia; I11.0 Hypertensive heart disease with heart failure
CPT/HCPCS: 36415; 80048; 80053; 82010; 82962; 83735; 84100; 85025; 86922; 88304-TC; 88311-TC; 94010; 94760; 97116-GP; 97162-GP; C1768